=== PATIENT | female | born 1965 | race African-American/Black ===

== ENCOUNTER 2024-01-28 09:39 | Outpatient (OUT) | payer MEDICAID, SELFPAY ==
--- NOTE | 2024-01-28 09:51 | MM_ITS ---
Patient Name: YOLI ROY MR#: [id number] : 1965 Exam Date: 01/28/2024 Ordering Doctor: Non-Staff Physician RADIOLOGY REPORT PROCEDURE: MM TOMOSYNTHESIS SCREENING BI COMPARISON: None. INDICATIONS: Screening Calculator Name NCI Breast Cancer Risk Assessment Tool 5 Year Breast Cancer Risk Not Reported. Lifetime Breast Cancer Risk Not Reported. Personal Breast Cancer No Personal Ovarian Cancer No Treatments None Family Cancers None LOCATION: The [facility] BREAST COMPOSITION: The breasts are heterogeneously dense,which may obscure small masses. FINDINGS: DIAGNOSTIC CATEGORY 1--NEGATIVE. Scattered benign-appearing calcifications are present. Scattered benign-appearing lymph nodes are present. RIGHT BREAST: No significant suspicious finding. LEFT BREAST: No significant suspicious finding. RECOMMENDATIONS: ROUTINE MAMMOGRAM AND CLINICAL EVALUATION IN 12 MONTHS. PLEASE NOTE: A NORMAL MAMMOGRAM DOES NOT EXCLUDE THE POSSIBILITY OF BREAST CANCER. A CLINICALLY SUSPICIOUS PALPABLE LUMP SHOULD BE BIOPSIED. Dictated by: Kurtis Armstrong MD on 01/28/2024 at 11:44 Approved by: Kurtis Armstrong MD on 01/28/2024 at 11:59
== END 2024-01-28 09:40 | disposition home or self-care (01) ==
LOC: MAMMO 09:44
PROVIDERS: PCP Family Medicine
DX: Z12.31 Encounter for screening mammogram for malignant neoplasm of breast (principal)
CPT/HCPCS: 77063; 77067

== ENCOUNTER 2024-03-25 11:21 | Outpatient (OUT) | payer MEDICAID, SELFPAY ==
--- NOTE | 2024-03-25 11:27 | US_ITS ---
The [address] [address] Patient Name: YOLI ROY MRN: [id number] date: 1965 Sex: F Assigned Patient Location: US Current Patient Location: US Accession/Order Number: [id number] Exam Date: 03/25/2024 11:28 Report Date: 03/25/2024 13:18 At the request of: NON-STAFF PHYSICIAN Procedure: US right upper quadrant EXAM: US right upper quadrant HISTORY: Right Upper Quadrant Pain COMPARISON: None. TECHNIQUE: Grayscale, color and Doppler FINDINGS: The visualized pancreas is normal The liver measures 16.1 cm in length. Diffuse increase in hepatic echotexture suggesting hepatic steatosis. No focal mass. Hepatopedal flow in the main portal vein. The gallbladder is normal in appearance. The wall measures 1.4 mm. Negative sonographic Johnson sign. Common bile duct measures 5.2 mm, normal The right kidney is normal measuring 7.7 x 5 No ascites US/US right upper quadrant IMPRESSION: Echogenic liver suggesting hepatic steatosis. Electronically authenticated by: NÉSTOR CHACON Date: 03/25/2024 13:18
--- OUTSIDE RECORDS SUMMARY | 2024-03-25 11:29 | XMS_ITS | CCD ---
Author Organization [facility] Care Team Providers Care Call Center Analyst Name Role Phone PHYSICIAN, DEFAULT Unavailable Unavailable PHYSICIAN, DEFAULT Unavailable Unavailable NÉSTOR MACK JR Unavailable Unavailable NÉSTOR MACK JR Unavailable Unavailable NONE, XXXX Unavailable Unavailable CASSIUS BHANDARI~[id number] UNKNOWN Unavailable Unavailable DR CASSIUS BHANDARI Primary Care Unavailable SUZIE DIAZ Admitting Unavailable SUZIE DIAZ Attending Unavailable OSWALDO, DR NÉSTOR Cruz Consulting Unavailable JOHN GALLO Consulting Unavailable DR CASSIUS BHANDARI Primary Care Unavailable SUZIE DIAZ Admitting Unavailable SUZIE DIAZ Attending Unavailable JOHN THOMAS Consulting Unavailable Jhonny Bhat Attending Unavailab le NO FAMILY, PHYSICIAN Primary Care Unavailable Jhonny Bhat Admitting Unavailab le Jhonny Bhat Admitting Unavailab le Jhonny Bhat Attending Unavailab le NO FAMILY, PHYSICIAN Primary Care Unavailable NO PCP, NO PCP Primary Care Unavailable ROSARIO DAVIS Attending Unavailab le NO PCP, NO PCP Primary Care Unavailable Problems Active Problems Problem Classification Problem Date Documented Date Episodic/Chronic Anxiety disorders (1 source) Anxiety disorder, unspecified; Translations: [ANXIETY DISORDER UNSPECIFIED] Onset: 03-05-2022 Chronic Bacterial infection; unspecified site (1 source) Other specified bacterial agents as the cause of diseases classified elsewhere; Translations: [Other specified bacterial agents as the cause of diseases classified elsewhere] Onset: 09-18-2023 Episodic Inflammatory diseases of female pelvic organs (2 sources) Acute vaginitis; Translations: [Vaginitis] Onset: 09-18-2023 Episodic Mood disorders (1 source) Major depressive disorder, single episode, unspecified; Translations: [JAQUELINE DEPRESS D/O SINGLE EPIS UNS] Onset: 03-05-2022 Chronic Other connective tissue disease (4 sources) Pain in right leg; Translations: [PAIN IN RIGHT LEG] Onset: 03-01-2022 Episodic Other infections; including parasitic (2 sources) Scabies; Translations: [SCABIES] Onset: 07-24-2021 Episodic Schizophrenia and other psychotic disorders (1 source) Unspecified psychosis not due to a substance or known physiological condition; Translations: [Unspecified psychosis not due to a substance or known physiological condition] Onset: 10-18-2022 Chronic Unclassified (1 source) Rash Onset: 09-12-2023 Unclassified (1 source) Medical Clearance Onset: 09-12-2023 Past or Other Problems Problem Classification Problem Date Documented Da te Episodic/Chronic Other aftercare (1 source) Other long term care pharmacist (current) drug therapy; Translations: [OTH RESIDENTIAL CURRENT DRUG THERAPY] Onset: 07-24-2021 Episodic Other skin disorders (3 sources) Rash and other nonspecific skin eruption; Translations: [RASH OTH NONSPECIFIC SKIN ERUPTION] Onset: 07-23-2021 Episodic Results Test Name Value Interpretation Reference Range Facil ity URN MACROSCOPIC NURon 2023 BILIRUBIN PREET Negative Normal NEG [facility] Comment on above: Performed By: #### N UM #### [facility] ([id number]) [address] [place] [address] BLOOD/HGB PREET Negative Normal NEG [facility] Comment on above: Performed By: #### N UM #### [facility] ([id number]) [address] [place] [address] [place] [address] GLUCOSE PREET Negative Normal NEG [facility] Comment on above: Performed By: #### N UM #### [facility] ([id number]) [address] [place] [address] KETONES PREET Negative Normal NEG [facility] Comment on above: Performed By: #### N UM #### [facility] ([id number]) [address] [place] [address] [place] [address] LEUKOCYTE ESTERASE PREET Trace Abnormal NEG [facility] Comment on above: Performed By: #### N UM #### [facility] ([id number]) [address] [place] [address] NITRITE PREET Negative Normal NEG [facility] Comment on above: Performed By: #### N UM #### [facility] ([id number]) [address] [place] [address] PH PREET 5.5 Normal 5.0-8.5 [facility] Comment on above: Performed By: #### N UM #### [facility] ([id number]) [address] [place] [address] PROTEIN PREET Negative Normal NEG [facility] Comment on above: Performed By: #### N UM #### [facility] ([id number]) [address] [place] [address] SPECIFIC GRAVITY PREET >=1.030 Normal 1.003-1.035 [facility] Comment on above: Performed By: #### N UM #### [facility] ([id number]) [address] [place] [address] UROBILINOGEN PREET 0.2 eu/dL Normal <1.1 [facility] Comment on above: Performed By: #### N UM #### [facility] ([id number]) [address] [place] [address] XR hip RT min 2V(w/wo pelvis )*on 10-20-2022 XR hip RT min 2V(w/wo pelvis)* [facility] Main [address] [address] XRay Report Signed Patient: Ne Roy MR#: [id number] : 1965 Acct:[id number] Age/Sex: 57 / F ADM Date: 10/18/22 Loc: Room: [address] [place] [address] Type: ADM IN Attending Dr: Tereza Bhat MD Copies to: Jhonny Bhat MD Ordering Provider: Jhonny Bhat MD Date of Service: 10/20/22 XR/XR hip RT min 2V(w/wo pelvis)*: R hip pain, NKI XR hip RT min 2V(w/wo pelvis)* 10/20/2022 7:46 AM SIGNS AND SYMPTOMS: R hip pain, NKI PROTOCOL: Frontal and frog-leg views of the right hip COMPARISON: None FINDINGS: Mild subcortical cystic change is noted in the acetabular roof on the right with mild narrowing of the right hip joint space. There is no fracture or dislocation. The visualized right hemipelvis is grossly intact. Calcified uterine fibroids are partly visualized. XR/XR hip RT min 2V(w/wo pelvis)* IMPRESSION: No fracture or dislocation. Degenerative changes are noted in the right hip, as above. Impression dictated by: Selwyn Wilkinson M.D.10/20/2022 10:47 AM Dictation Location: [place] [address] Transcribed By: [facility] 10/20/22 104 Dictated By: Selwyn Wilkinson II, MD 10/20/22 104 Signed By: 10/20/22 104 Normal ECG 12 lead ECGon 10-18-2022 ECG 12 lead ECG [facility] [place] [address] Electrocardiograph Report Signed Patient: Ne Roy MR#: [id number] : 1965 Acct:[id number] Age/Sex: 57 / F ADM Date: 10/18/22 Loc: Room: [address] [place] [address] Type: ADM IN Attending Dr: Tereza Bhat MD Ordering Provider: Jhonny Bhat MD Date of Service: 10/18/2211/03/499 ECG/ECG 12 lead ECG: antipsychotic therapy Copies to: Test Reason : Blood Pressure : / mmHG Vent. Rate : 086 BPM Atrial Rate : 086 BPM P-R Int : 206 ms QRS Dur : 080 ms QT Int : 382 ms P-R-T Axes : 031 007 033 degrees QTc Int : 457 ms Normal sinus rhythm Low voltage QRS Septal infarct , age undetermined Abnormal ECG No previous ECGs available Confirmed by JEANA ALVA DO ([id number]) on 10/18/2022 12:52:52 PM Referred By: Electronically Signed By:JEANA ALVA DO Transcribed By: MUS Signed By Jeana Alva DO 10/18 1252 Normal Lipid Panelon 10-18-2022 Cholesterol [Mass/Vol] 126 mg/dL Low 140-200 Comment on above: Result Comment: Chol less than 200 mg/dl low risk Chol 201-239 mg/dl borderline risk Chol 240 mg/dl and greater high risk Performed By: #### L IPID, TSH3 wRFLX, [id number] #### [facility] [address] [place] [address] Cholesterol in HDL [Mass/Vol] 44 mg/dL Normal 23-92 Comment on above: Result Comment: HDL CHOL ATP-III CLASSIFICATION Cardiovascular Risk HDL > or equal to 60 mg/dL LOW HDL < 40 mg/dL HIGH Performed By: #### L IPID, TSH3 wRFLX, [id number] #### [facility] [address] [id number] [place] Cholesterol.total/C holesterol in HDL [Mass ratio] 2.9 {ratio} Normal <5.0 Comment on above: Performed By: #### L IPID, TSH3 wRFLX, [id number] #### [facility] [address] [id number] [place] LDL Cholesterol,Calcula nany 74 mg/dL Normal 0-100 Comment on above: Result Comment: LDL ATP III CLASSIFICATION LDL less than 100 mg/dL Optimal LDL 100-129 mg/dL Near or above optimal LDL 130-159 mg/dL Borderline high LDL 160-189 mg/dL High LDL greater than 189 mg/dL Very high Performed By: #### L IPID, TSH3 wRFLX, [id number] #### [facility] [address] [id number] [place] Triglyceride w/Reflex 42 mg/dL Normal 0-149 Comment on above: Result Comment: TRIG ATP III CLASSIFICATION TRIG less than 150 mg/dL Normal TRIG 150-199 mg/dL Borderline high TRIG 200-500 mg/dL High TRIG greater than 500 mg/dL Very high Standard traceable to the Center for Disease Conrtrol and Prevention (CDC) test method. Performed By: #### L IPID, TSH3 wRFLX, [id number] #### [facility] [address] [place] [address] VLDL CHOLESTEROL 8 mg/dL Normal [facility] Comment on above: Performed By: #### L IPID, TSH3 wRFLX, [id number] #### [address] Thyroid Stim Hormone w/Rflxo n 10-18-2022 Thyroid Stim Hormone w/Rflx 0.68 u[iU]/mL Normal 0.45-5.33 Comment on above: Performed By: #### L IPID, TSH3 wRFLX, [id number] #### [address] Vitamin D 25 Hydroxy Totalon 10-18-2022 Vitamin D 25 Hydroxy Total 27.6 ng/mL Low 30-100 Comment on above: Result Comment: TITO MIN D STATUS 25(OH)VITAMIN D RANGE (ng/mL) Deficient <20 Insufficient 20 to <30 Sufficient 30 to 100 Reference: Gege MF,Campos NC, Mary Ellen CANA[place], et al. Evaluation,treatment, and prevention of vitamin D deficiency; an Endocrine Society clinical practice guideline. JCEM. 2010; 96(7):1911-30. PERFORMED BY: [place] [address] PATHOLOGIST LAUNCH ENGINEER LETICIA ABARCA M.D. Performed By: #### L IPID, TSH3 wRFLX, [id number] #### [address] BNPon 03-01-2022 Natriuretic peptide B (Bld) [Mass/Vol] 11.0 pg/mL Normal <=900.0 [facility] Comment on above: Performed By: #### B MP, BNP #### [facility] [address] [place] [address] Dr. Asa Jara CBC AUTO DIFFon 03-01-2022 BASO # 0.1 103/ul Normal 0.0-0.1 [facility] Comment on above: Performed By: #### C BC #### [facility] [address] [place] [address] Dr. Asa Jara Basophils/100 WBC (Bld) 0.5 % Normal 0.2-2.0 [facility] Comment on above: Performed By: #### C BC #### [facility] [address] [place] [address] Dr. Asa Jara EO # 0.3 103/ul Normal 0.0-0.7 [facility] Comment on above: Performed By: #### C BC #### [facility] [address] [place] [address] Dr. Asa Jara Eosinophils/100 WBC (Bld) 2.7 % Normal 0.9-7.0 [facility] Comment on above: Performed By: #### C BC #### [facility] [address] [place] [address] Dr. Asa Jara Erythrocyte distribution width (RBC) [Ratio] 12.2 % Normal 11.0-15.0 [facility] Comment on above: Performed By: #### C BC #### [facility] [address] [place] [address] Dr. Asa Jara Hematocrit (Bld) [Volume fraction] 44.2 % Normal 36.0-48.0 [facility] Comment on above: Performed By: #### C BC #### [facility] [address] [place] [address] Dr. Asa Jara Hemoglobin (Bld) [Mass/Vol] 15.4 g/dL Normal 12.0-16.0 [facility] Comment on above: Performed By: #### C BC #### [facility] [address] [place] [address] Dr. Asa Jara IG # 0.01 10e3/ul Normal 0.00-0.03 [facility] Comment on above: Performed By: #### C BC #### [facility] [address] [place] [address] Dr. Asa Jara IG % 0.1 % Normal 0.0-0.5 [facility] Comment on above: Performed By: #### C BC #### [facility] [address] [place] [address] Dr. Asa Jara LYMPH # 3.0 103/ul Normal 1.2-3.8 [facility] Comment on above: Performed By: #### C BC #### [facility] [address] [place] [address] Dr. Asa Jara Lymphocytes/100 WBC (Bld) 30.9 % Normal 20.5-60.0 [facility] Comment on above: Performed By: #### C BC #### [facility] [address] [place] [address] Dr. Asa Jara MANUAL DIFF REQ NO Normal [facility] Comment on above: Performed By: #### C BC #### [facility] [address] [place] [address] Dr. Asa Jara MCH (RBC) [Entitic mass] 31.2 pg Normal 26.7-34.0 [facility] Comment on above: Performed By: #### C BC #### [facility] [address] [place] [address] Dr. Asa Jara MCHC (RBC) [Mass/Vol] 34.8 g/dL Normal 29.9-35.2 [facility] Comment on above: Performed By: #### C BC #### [facility] [address] [place] [address] Dr. Asa Jara MCV (RBC) [Entitic vol] 89.5 fL Normal 81.0-99.0 [facility] Comment on above: Performed By: #### C BC #### [facility] [address] [place] [address] Dr. Asa Jara MONO # 0.5 103/ul Normal 0.3-0.8 [facility] Comment on above: Performed By: #### C BC #### [facility] [address] [place] [address] [address] Asa Jara Monocytes/100 WBC (Bld) 5.4 % Normal 1.7-12.0 [facility] Comment on above: Performed By: #### C BC #### [facility] [address] [place] [address] [address] Asa Jara NEUT # 5.8 103/ul Normal 1.4-6.5 [facility] Comment on above: Performed By: #### C BC #### [facility] [address] [place] [address] Dr. Asa Jara Neutrophils/100 WBC (Bld) 60.4 % Normal 43.0-75.0 [facility] Comment on above: Performed By: #### C BC #### [facility] [address] [place] [address] Dr. Asa Jara Platelet mean volume (Bld) [Entitic vol] 9.7 fL Normal 9.5-13.5 [facility] Comment on above: Performed By: #### C BC #### [facility] [address] [place] [address] Dr. Asa Jara PLT 215 103/ul Normal 150-450 [facility] Comment on above: Performed By: #### C BC #### [facility] [address] [place] [address] Dr. Asa Jara RBC 4.94 106/ul Normal 4.20-5.40 [facility] Comment on above: Performed By: #### C BC #### [facility] [address] [place] [address] Dr. Asa Jara WBC 9.6 103/ul Normal 4.0-11.0 [facility] Comment on above: Performed By: #### C BC #### [facility] [address] [place] [address] Dr. Asa Jara PROF CHEM 8 (BAS METB)on Anion gap [Moles/Vol] 11.3 mmol/L Normal [facility] Comment on above: Performed By: #### B MP, BNP #### [facility] [address] [place] [address] [address] Asa Jara Calcium [Mass/Vol] 9.4 mg/dL Normal 8.5-10.1 [facility] Comment on above: Performed By: #### B MP, BNP #### [facility] [address] [place] [address] [address] Asa Jara Chloride [Moles/Vol] 105 mmol/L Normal 98-107 [facility] Comment on above: Performed By: #### B MP, BNP #### [facility] [address] [place] [address] [address] Asa Jara CO2 [Moles/Vol] 24.6 mmol/L Normal 21.0-32.0 [facility] Comment on above: Performed By: #### B MP, BNP #### [facility] [address] [place] [address] [address] Asa Jara Creatinine [Mass/Vol] 0.76 mg/dL Normal 0.55-1.02 [facility] Comment on above: Performed By: #### B MP, BNP #### [facility] [address] [place] [address] [address] Asa Jara EGFR-AF CITIZEN OF [place] >60 Normal >=60 [facility] Comment on above: Performed By: #### B MP, BNP #### [facility] [address] [place] [address] [address] Asa Jara EGFR-NON AF CITIZEN OF THE [place] >60 Normal >=60 [facility] Comment on above: Performed By: #### B MP, BNP #### [facility] [address] [place] [address] [address] Asa Jara Glucose [Mass/Vol] 98 mg/dL Normal 74-106 [facility] Comment on above: Performed By: #### B MP, BNP #### [facility] [address] [place] [address] [address] Asa Jara Potassium [Moles/Vol] 4.4 mmol/L Normal 3.5-5.1 [facility] Comment on above: Performed By: #### B MP, BNP #### [facility] [address] [place], [place] [address] Dr. Asa Jara Sodium [Moles/Vol] 137 mmol/L Normal 136-145 [facility] Comment on above: Performed By: #### B MP, BNP #### [facility] [address] [place], [place] [address] Dr. Asa Jara Urea nitrogen [Mass/Vol] 15.0 mg/dL Normal 7.0-18.0 [facility] Comment on above: Performed By: #### B MP, BNP #### [facility] [address] [place], [place] [address] Dr. Asa Jara Urea nitrogen/Creatinine [Mass ratio] 19.7 mg/mg Normal [facility] Comment on above: Performed By: #### B MP, BNP #### [facility] [address] [address] [address] Asa Jara US LUCITA DOP LEG RTon 03-01-20 US LUCITA DOP LEG RT EXAMINATION: US LUCITA DOP LEG RT HISTORY: Deep venous thrombosis COMPARISON: No relevant comparison available. TECHNIQUE: Grayscale, color and Doppler ultrasound FINDINGS: Region: Right leg Thrombus: None Flow: Normal Compressibility: Normal Augmentation: Normal IMPRESSION: No deep or superficial vein thrombus in the right leg *Exam performed in accordance with [facility] practice guidelines- Peripheral venous ultrasound, July 08, 2009. Electronically authenticated by: NÉSTOR CHACON Date: 2022-03-01 15:31 Normal [facility] Coding Summary.on 12-22-2017 Coding Summary. CODING DATE: 12/22/[address] [facility] STATUS: Home (Routine DC) PAYOR: Medicaid EAPG DESCRIPTION 0288 DIAGNOSTIC ULTRASOUND EXCEPT OBSTETRICAL AND VASCULAR OF LOWER EXTREMITIES ADMIT DX: REASON FOR VISIT DX: B19.20 Unspecified viral hepatitis C without hepatic coma FINAL DX: PRINCIPAL: K76.0 Fatty (change of) liver, not elsewhere classified SECONDARY: B19.20 Unspecified viral hepatitis C without hepatic coma PYMT PROC EAPG STAT DESCRIPTION DOCTOR NAME DATE NOTE: The code number assigned matches the documented diagnosis and / or procedure in the patient's chart. However, the narrative phrase printed from the coding software may appear abbreviated, or result in slightly different terminology. Coded By: Angela Larry Date Saved: 12/22/2017 09:50 am Normal [facility] Encounters Encounter Date Encounter Type Care Provider Facility Start: 09-18-2023 End: 09-18-2023 Emergency department patient visit NO PCP NO PCP [facility] Start: 09-12-2023 End: 09-12-2023 Emergency department patient visit NO PCP NO PCP [facility] Start: 10-24-2022 ambulatory Jhonny Bhat F acility: Start: 10-18-2022 End: 10-21-2022 Evaluation and management of inpatient Jhonny Bhat Facility: Start: 03-01-2022 End: 03-01-[address] CASSIUS BHANDARI Facility: Start: 07-23-2021 End: 07-23-[address] CASSIUS BHANDARI Facility:[facility] Start: 12-17-2017 End: 12-18-2017 Patient encounter NÉSTOR MACK JR [facility] Start: 01-28-2017 End: 01-29-2017 Ambulatory DEFAULT PHYSICIAN Facility:[facility] Payers Date Payer Category Payer Self-pay 2022 Medicaid [id number] 2017 Unknown [id number] 1965 Unknown [id number] .16.84 [id number] 1965 Unknown [id number] 1965 Unknown [id number] .16.8 [id number] 1965 Unknown [id number] .16.8 [id number] 1957 Unknown [id number] Unknown Unknown [id number] 2.16.8 [id number] Unknown [id number] .16.8 [id number] Summary Purpose Family History No Family History Records FoundNo Family History Records FoundNo Family History Records FoundNo Family History Records FoundNo Family History Records Found Advance Directives No Advanced Directives Records FoundNo Advanced Directives Records FoundNo Advanced Directives Records FoundNo Advanced Directives Records FoundNo Advanced Directives Records Found Additional Source Comments INFORMATION SOURCE (unrecogn ized section and content) DATE CREATED AUTHOR 10/07/2017 [facility] DATE CREATED AUTHOR AUTHOR'S ORGANIZ ATION 01/04/2018 [facility] DATE CREATED AUTHOR AUTHOR'S ORGANIZ ATION 03/06/2022 [facility] DATE CREATED AUTHOR AUTHOR'S ORGANIZ ATION 04/13/2023 [facility] DATE CREATED AUTHOR AUTHOR'S ORGANIZ ATION 09/20/2023 [facility] FOR RECORDS PERTAINING TO PATIENTS WHO ARE OR HAVE BEEN ENROLLED IN A CHEMICAL DEPENDENCY/SUBSTANCEABUSE PROGRAM, SOME INFORMATION MAY BE OMITTED. This clinical summary was aggregated from multiple sources. Caution should be exercised in using it in the provision of clinical care. This summary normalizes information from multiple sources, and as a consequence, information in this document may materially change the coding, format and clinical context of patient data. In addition, data may be omitted in some cases. CLINICAL DECISIONS SHOULD BE BASED ON THE PRIMARY CLINICAL RECORDS. [employer] provides no warranty or guarantee of the accuracy or completeness of information in this document.
== END 2024-03-25 11:22 | disposition home or self-care (01) ==
LOC: US 11:21
PROVIDERS: PCP Family Medicine
DX: R10.11 Right upper quadrant pain (principal)
CPT/HCPCS: 76705

== ENCOUNTER 2024-09-20 11:38 | Emergency (ER) | payer MEDICAID, SELFPAY ==
--- OUTSIDE RECORDS SUMMARY | 2024-07-09 07:00 | XMS_ITS ---
Demographics Address [address] [facility] [address] [place] [address] Mobile Email Address m Preferred Language en Marital Status Unknown Taoism Affiliation Unknown Race Black or Julia rican Ethnic Group Not or Lati no Author Organization [facility] vices Address [address] [place] [id number] Care Team Providers Care Cloth Mercerizing Supervisor Name Role Phone Debra Mendy Primary Care Provider Becky Griffin [phone] REASON FOR VISIT f/u Social History Sex Assigned At : Social History Observation Description Sex Assigned At Female Encounters Encounter Location Date Provider Diagnosis Main [address] [place], [place] [id number] 07/09/2024 Mendy Richardson Plan Of Treatment Next Appt Details Provider Name:Mendy Richardson , 10/12/2024 09:45:00 AM, [address] [place] [address] [place], [place], [phone], Progress Notes * Ne ROYDOB: [birth year] (58 yo F)Acc No.[id number]:07/09/2024 Medical Note Patient: Ne KILGORE Provider: Mehga Richardson :1965 A ge:58 Y S ex:Female Date:07/09/2024 Address:[address] [facility] [address], [address], [id number] Subjective: * Chief Complaints: * 1 . F/u. * Medical History: Objective: * Vitals: Assessment: Plan: * Treatment: * Billing Information: * Visit Code: * Procedure Codes: * Electronic signature of BHARGAV Aragon sa on 09/20/2024 at 11:53 AM EDT Sign off status: Pending * Provider: Megha Richardson Date: 0 07/09/2024 Generated for Fany dawn/Miguel/Padmini on: 0 09/20/2024 11:53 AM EDT
--- OUTSIDE RECORDS SUMMARY | 2024-09-20 11:53 | XMS_ITS | Clinical Summary ---
Author Organization [facility] Healthcare Address [address] [place] [address] Care Team Providers Care Region Manager Name Role Phone Unavailable Primary Care Provider Unavailabl e Social History Tobacco Use Types Packs/Day Years Used Date Smoking Tobacco: Never Assessed Comments Unknown Sex and Gender Information Value Date Recorded Sex Assigned at Not on file Legal Sex Female 8:22 PM EDT Gender Identity Not on file Sexual Orientation Not on file Last Filed Vital Signs Vital Sign Reading Time Taken Comments Blood Pressure - - Pulse - - Temperature - - Respiratory Rate - - Oxygen Saturation - - Inhaled Oxygen Concentration - - Weight 86.2 kg (190 lb) 02/12/2018 12:00 PM EDT Height 160 cm (5' 3 ) 02/12/2018 12:00 PM EDT Body Mass Index 33.66 02/12/2018 12:00 PM EDT Plan of Treatment Health Maintenance Due Date Last Done Comments CT Colonography 1967 Colonoscopy 1967 FIT 1967 FOBT 1965 Sigmoidoscopy 1967 Pap Smear 10/15/1988 Cervical Cancer Screening 10/15/1997 HPV/Cotest 10/15/1997 Colorectal Cancer Screening 06/30/2021 FIT-DNA 06/30/2021 06/30/2018 Influenza Vaccine (Season Ended) 2024 Mammogram 01/27/2025 01/28/2024, 020 07/2020, 02/26/2019, Additional history exists Procedures Procedure Name Priority Date/Time Associated Diagnosis Comments MM TOMOSYNTHESIS SCREENING BI 01/28/2024 11:59 AM EDT from Last 3 Months or Most Recently Relevant to Health Maintenance Results * MM TOMOSYNTHESIS SCREENING BI (01/28/2024 11:59 AM EDT) Anatomical Region Laterality Modality Other 01/28/2024 11:5 9 AM EDT Narrative 01/28/2024 12:00 PM EDT The [address] [address] Mammography Report Signed Patient: NE ROY MR#: [id number] : 1965 Acct:[id number] Age/Sex: 58 / F ADM Date: 01/28/24 Loc: MAMMO Attending Dr: AngeStaff Physician Olivo Ordering Physician: Mercy Posada M.D. Results: Date of Service: 01/28/24 Follow Up: Procedure(s): MM tomosynthesis screening BI Accession Number(s): [id number] cc: Sven Martin M.D.; Mercy Posada M.D. Patient Name: NE ROY MR#: [id number] : 1965 Exam Date: 01/28/2024 Ordering Doctor: Non-Staff Physician RADIOLOGY REPORT PROCEDURE: MM TOMOSYNTHESIS SCREENING BI COMPARISON: None. INDICATIONS: Screening Calculator Name NCI Breast Cancer Risk Assessment Tool 5 Year Breast Cancer Risk Not Reported. Lifetime Breast Cancer Risk Not Reported. Personal Breast Cancer No Personal Ovarian Cancer No Treatments None Family Cancers None LOCATION: The [facility] BREAST COMPOSITION: The breasts are heterogeneously dense,which may obscure small masses. FINDINGS: DIAGNOSTIC CATEGORY 1--NEGATIVE. Scattered benign-appearing calcifications are present. Scattered benign-appearing lymph nodes are present. RIGHT BREAST: No significant suspicious finding. LEFT BREAST: No significant suspicious finding. RECOMMENDATIONS: ROUTINE MAMMOGRAM AND CLINICAL EVALUATION IN 12 MONTHS. PLEASE NOTE: A NORMAL MAMMOGRAM DOES NOT EXCLUDE THE POSSIBILITY OF BREAST CANCER. A CLINICALLY SUSPICIOUS PALPABLE LUMP SHOULD BE BIOPSIED. Dictated by: Kurtis Armstrong MD on 01/28/2024 at 11:44 Approved by: Kurtis Armstrong MD on 01/28/2024 at 11:59 Dictated By: Kurtis Armstrong M.D. Signed By: 01/28/24 1200 DD/ 1159 TD/TT: Leather Patcher: Procedure Note Radiology, RadiologistMD - 01/28/2024 [place] [address] Mammography Report Signed Patient: NE ROY AMR#: [id number] : 1965Acct:[id number] Age/Sex: 58 / FADM Date: 01/28/24 Loc: MAMMO Attending Dr: AngeStaff Physician Olivo Ordering Physician: Mercy Posada M.D.Results: Date of Service: 01/28/24Follow Up: Procedure(s): MM tomosynthesis screening BI Accession Number(s): [id number] cc: Sven Martin M.D.; Mercy Posada M.D. Patient Name: NE ROY MR#: [id number] : 1965 Exam Date: 01/28/2024 Ordering Doctor: Non-Staff Physician RADIOLOGY REPORT PROCEDURE: MM TOMOSYNTHESIS SCREENING BI COMPARISON: None. INDICATIONS: Screening Calculator Name NCI Breast Cancer Risk Assessment Tool 5 Year Breast Cancer Risk Not Reported. Lifetime Breast Cancer Risk Not Reported. Personal Breast Cancer No Personal Ovarian Cancer No Treatments None Family Cancers None LOCATION: [facility] BREAST COMPOSITION: The breasts are heterogeneously dense,which may obscure small masses. FINDINGS: DIAGNOSTIC CATEGORY 1--NEGATIVE. Scattered benign-appearing calcifications are present. Scattered benign-appearing lymph nodes are present. RIGHT BREAST: No significant suspicious finding. LEFT BREAST: No significant suspicious finding. RECOMMENDATIONS: ROUTINE MAMMOGRAM AND CLINICAL EVALUATION IN 12 MONTHS. PLEASE NOTE: A NORMAL MAMMOGRAM DOES NOT EXCLUDE THE POSSIBILITY OFBREAST CANCER. A CLINICALLY SUSPICIOUS PALPABLE LUMP SHOULD BE BIOPSIED. Dictated by: Kurtis Armstrong MD on 01/28/2024 at 11:44 Approved by: Kurtis Armstrong MD on 01/28/2024 at 11:59 Dictated By: Kurtis Armstrong M.D. Signed By:01/28/24 1200 DD/ 1159 TD/TT: Leather Patcher: us Generic External Data Provider [facility] Final Result from Last 3 Months or Most Recently Relevant to Health Maintenance
--- OUTSIDE RECORDS SUMMARY | 2024-09-20 11:54 | XMS_ITS | Encounter Summary ---
Demographics Address [address] [facility] [address] [place] [address] Home Phone Mobile Phone Email Address Preferred Language ENG Marital Status Single Muslim Affiliation Unknown Race Black or Julia rican Ethnic Group Not or Lati no Author Organization [facility] Address [facility] [place] [address] Care Team Providers Care Bush And Vine Fruit Crop Farmer Name Role Phone Unavailable Primary Care Provider Unavailabl e Source Comments In the event this information is protected by the Federal Confidentiality of Alcohol and Drug AbusePatient Records regulations: The Federal rules restrict any use of the information to criminally investigate or prosecute any alcohol or drug abuse patient.[facility] Reason for Visit * Reason Comments Appointment Encounter Details Date Type Department Care Team ([facility] Contact Info) Description 05/06/2024 Telephone [facility] [address] [place] [address] Kurtis Leyva Jr., DO [address] [facility] [address] [address] Appointment Social History Tobacco Use Types Packs/Day Years Used Date Smoking Tobacco: Never Assessed Area Deprivation Index Answer Date Eh rded National Score (1-100), lowe r number is lower risk 81 09/16/2023 State Score (1-10), lower number is lower risk 7 09/16/2023 Data from: https://www.neighborhoodatlas.medicine.[facility].edu/ . Last address used for calculation [address] [facility] 09/16/2023 Comments Unknown Sex and Gender Information Value Date Recorded Sex Assigned at Not on file Legal Sex Female 11:17 AM EDT Gender Identity Not on file Sexual Orientation Not on file documented as of this encounter Miscellaneous Notes * Telephone Encounter - Eliana Winchester - 05/17/2024 11:05 AM EST Spoke with the patient, explained Dr. Leyva no longer sees patients for Hepatology, she stated she has found another provider for this issue. * Telephone Encounter - Janis Frausto RN - 05/12/2024 12:00 PM EST Hi Janis, This message came through from the scheduling center. The patient says they were with Dr. Leyva prior to him coming to [place]. However, when I put the patient in for the conditions stated, the decision tree takes me to Hepatology, not giving me an option to schedule with Dr. Leyva unless I force him on to the list of providers. My question is has he seen her in the past for her Hep C and fatty liver-non alcoholic condition inthe past? If so, should I schedule her with him? Aisha I would advise pt that he does not see pts for hepatology any longer since coming to [facility]. But, she can be added to Dr. Rivas's schedule (who I am also - for). He see pt's at [facility] on Wednesdays. Thank you. Janis Frausto RN * Telephone Encounter - Janice Franco Bambi - 05/06/2024 4:08 PM EST Ne is calling Kurtis Leyva Jr., DO today to request Appointment. Patient states she was a previous patient of Dr. Leyva prior to provider coming to . Patient states she was seeing Dr. Leyva for Hepatitis C, but most recently seen for Acute fatty liver- non alcoholic Patient would like to continue care with Dr. Leyva Decision tree does not allow scheduling with Dr. Leyva for either diagnosis. Please advise if the provider would be able to see this patient? Patient has been identified by name and birthdate. Duration of symptoms: N/A Person calling: self Call patient at: at home and on cell [phone] (home) [phone] (cell) Was an appointment scheduled: No Closing statement: Results or non-symptom based questions: Thank you for calling [facility], your call will be returned within the next business day. Janice Franco documented in this encounter Plan of Treatment Not on file documented as of this encounter Visit Diagnoses Not on filedocumented in this encounter
--- OUTSIDE RECORDS SUMMARY | 2024-09-20 11:54 | XMS_ITS | Encounter Summary ---
Author Organization [facility] Address [address] [place] [address] Care Team Providers Care Shipping And Receiving Weigher Name Role Phone Unavailable Primary Care Provider Unavailabl e Encounter Details Date Type Department Care Team (Late st Contact Info) Description 01/28/2024 Clinisync Result Encounter [facility] External Department Unsolicited Provider, Generic External Data Social History Tobacco Use Types Packs/Day Years Used Date Smoking Tobacco: Never Assessed Comments Unknown Sex and Gender Information Value Date Recorded Sex Assigned at Not on file Legal Sex Female 8:22 PM EDT Gender Identity Not on file Sexual Orientation Not on file documented as of this encounter Plan of Treatment Not on file documented as of this encounter Procedures Procedure Name Priority Date/Time Associated Diagnosis Comments MM TOMOSYNTHESIS SCREENING BI 01/28/2024 11:59 AM EDT documented in this encounter Results * MM TOMOSYNTHESIS SCREENING BI (01/28/2024 11:59 AM EDT) Anatomical Region Laterality Modality Other 01/28/2024 11:5 9 AM EDT Narrative 01/28/2024 12:00 PM EDT The [address] [address] Mammography Report Signed Patient: NE ROY MR#: [id number] : 1965 Acct:[id number] Age/Sex: 58 / F ADM Date: 01/28/24 Loc: MAMMO Attending Dr: Non-Staff Physician Pallavi Ordering Physician: Mercy Posada M.D. Results: Date of Service: 01/28/24 Follow Up: Procedure(s): MM tomosynthesis screening BI Accession Number(s): [id number] cc: Sven Martin M.D.; PhysicianeMrcy M.D. Patient Name: NE ROY MR#: [id number] : 1965 Exam Date: 01/28/2024 Ordering Doctor: Nadine-Staff Physician RADIOLOGY REPORT PROCEDURE: MM TOMOSYNTHESIS SCREENING BI COMPARISON: None. INDICATIONS: Screening Calculator Name NCI Breast Cancer Risk Assessment Tool 5 Year Breast Cancer Risk Not Reported. Lifetime Breast Cancer Risk Not Reported. Personal Breast Cancer No Personal Ovarian Cancer No Treatments None Family Cancers None LOCATION: The [facility] BREAST COMPOSITION: The breasts are [...] Signed By: 01/28/24 1200 DD/ 1159 TD/TT: Medical Social Worker: Procedure Note Radiology, Radiologist, - 01/28/2024 [place] [address] Mammography Report Signed Patient: NE ROY AMR#: [id number] : 1965Acct:[id number] Age/Sex: 58 / FADM Date: 01/28/24 Loc: MAMMO Attending Dr: AngeStaff Physician Olivo Ordering Physician: Mercy Posada M.D.Results: Date of Service: 01/28/24Follow Up: Procedure(s): MM tomosynthesis screening BI Accession Number(s): [id number] cc: Sven Martin M.D.; PhysicianMercy M.D. Patient Name: NE ROY MR#: [id number] : 1965 Exam Date: 01/28/2024 Ordering Doctor: Non-Staff Physician RADIOLOGY REPORT PROCEDURE: MM TOMOSYNTHESIS SCREENING BI COMPARISON: None. INDICATIONS: Screening Calculator Name NCI Breast Cancer Risk Assessment Tool 5 Year Breast Cancer Risk Not Reported. Lifetime Breast Cancer Risk Not Reported. Personal Breast Cancer No Personal Ovarian Cancer No Treatments None Family Cancers None LOCATION: [facility] BREAST COMPOSITION: The breasts are [...] M.D. Signed By:01/28/24 1200 DD/ 1159 TD/TT: Medical Social Worker: Generic External Data Provider [facility] Final Result documented in this encounter Visit Diagnoses Not on filedocumented in this encounter
--- OUTSIDE RECORDS SUMMARY | 2024-09-20 11:54 | XMS_ITS | Encounter Summary ---
Author Organization [facility] Address [address] [place] [address] Care Team Providers Care Staff Interpreter Name Role Phone Unavailable Primary Care Provider Unavailabl e Encounter Details Date Type Department Care Team (Late st Contact Info) Description 03/25/2024 Clinisync Result Encounter [facility] External Department Unsolicited [...] Procedure Name Priority Date/Time Associated Diagnosis Comments US RIGHT UPPER QUADRANT 03/25/2024 1:18 PM EST documented in this encounter Results * US RIGHT UPPER QUADRANT (03/25/2024 1:18 PM EST) Anatomical Region Laterality Modality Other 03/25/2024 1:18 PM EST Narrative 03/25/2024 1:21 PM EST The [place] [id number] Ultrasound Report Signed Patient: NE ROY MR#: [id number] : 1965 Acct:[id number] Age/Sex: 58 / F ADM Date: 03/25/24 Loc: US Attending Dr: AngeStaff Physician Olivo Ordering Physician: Mercy Posada M.D. Date of Service: 03/25/24 Procedure(s): US right upper quadrant Accession Number(s): [id number] cc: Sven Martin M.D.; PhysicianMercy M.D. [address] [address] Patient Name: NE ROY MRN: [facility]:[id number] date: 1965 Sex: F Assigned Patient Location: US Current Patient Location: US Accession/Order Number: [id number] Exam Date: 03/25/2024 11:28 Report Date: 03/25/2024 13:18 At the request of: NON-STAFF PHYSICIAN Procedure: US right upper quadrant EXAM: US right upper quadrant HISTORY: Right Upper Quadrant Pain COMPARISON: None. TECHNIQUE: Grayscale, color and Doppler FINDINGS: The visualized pancreas is normal The liver measures 16.1 cm in length. Diffuse increase in hepatic echotexture suggesting hepatic steatosis. No focal mass. Hepatopedal flow in the main portal vein. The gallbladder is normal in appearance. The wall measures 1.4 mm. Negative sonographic Johnson sign. Common bile duct measures 5.2 mm, normal The right kidney is normal measuring 7.7 x 5 No ascites US/US right upper quadrant IMPRESSION: Echogenic liver suggesting hepatic steatosis. Electronically authenticated by: NÉSTOR CHACON Date: 03/25/2024 13:18 Dictated By: Néstor Chacon M.D. Signed By: 03/25/24 1321 DD/ 1318 TD/TT: Teasel Setter: Procedure Note Radiology, Radiologist, MD - 03/25/2024 [place] [address] Ultrasound Report Signed Patient: NE ROY AMR#: [id number] : 1965Acct:[id number] Age/Sex: 58 / FADM Date: 03/25/24 Loc: US Attending Dr: AngeStaff Physician Olivo Ordering Physician: Mercy Posada M.D. Date of Service: 03/25/24 Procedure(s): US right upper quadrant Accession Number(s): [id number] cc: Sven Martin M.D.; PhysicianMercy M.D. [address] [address] Patient Name: NE ROY MRN: [facility]:[id number] date: 1965 Sex: F Assigned Patient Location: US Current Patient Location: US Accession/Order Number: [id number] Exam Date: 03/25/2024 11:28 Report Date: 03/25/2024 13:18 At the request of: NON-STAFF PHYSICIAN Procedure: US right upper quadrant EXAM: US right upper quadrant HISTORY: Right Upper Quadrant Pain COMPARISON: None. TECHNIQUE: Grayscale, color and Doppler FINDINGS: The visualized pancreas is normal The liver measures 16.1 cm in length. Diffuse increase in hepaticechotexture suggesting hepatic steatosis. No focal mass. Hepatopedal flow in the main portal vein. The gallbladder is normal in appearance. The wall measures 1.4 mm.Negative sonographic Johnson sign. Common bile duct measures 5.2 mm, normal The right kidney is normal measuring 7.7 x 5 No ascites US/US right upper quadrant IMPRESSION: Echogenic liver suggesting hepatic steatosis. Electronically authenticated by: NÉSTOR CHACON Date: 03/25/2024 13:18 Dictated By: Néstor Chacon M.D. Signed By:03/25/24 1321 DD/ 1318 TD/TT: Teasel Setter: us Generic External Data Provider [facility] Final Result documented in this encounter Visit Diagnoses Not on filedocumented in this encounter
--- OUTSIDE RECORDS SUMMARY | 2024-09-20 11:54 | XMS_ITS | Patient Health Record ---
Demographics Address [address] [facility] [address] [place] [address] Mobile Email Address Preferred Language en Marital Status Unknown Cheondoism Affiliation Unknown Race Black or Julia rican Ethnic Group Not or Lati no Author Organization [facility] Address [address] [facility] [id number] Care Team Providers Care [employer] Clerk Name Role Phone eMndy Richardson Primary Care Provider Becky Griffin Unavailable [phone] Allergies No Known Allergies Results Component Value Reference Range Notes Cologuard Reviewed date:07/07/2024 01:03:25 PM Interpretation: Performing Lab: Notes/Report: LIPID PANEL WITH REFLEX TO D IRECT LDL Reviewed date:06/04/2024 01:22:32 PM Interpretation: Performing Lab: Notes/Report: CHOLESTEROL 173 100-199 mg/dL TRIGLYCERIDES 91 20-149 mg/dL VLDL-CHOL, CALCULATED 18 <30 mg/dL HDL-CHOL 52 >=50 mg/dL LDL-CHOL, CALCULATED 103 <130 mg/dL ADULT LDL CHOLESTEROL CLASSIFICATION <100mg/dL Optimal 100-129mg/dL Near/Abo ve Optimal 130-159mg/dL Borderli ne High >160mg/dL High Risk Desirable range <100 mg/dL for patients with CHD or diabetes and <70 mg/dL for diabetic patients with known heart disease. Direct LDL is recommended for patients with triglycerides >400. LDL/HDL 2.0 <4.1 LDL/HDL RATIO MALE FEMALE below average risk <2.3 <2.3 average risk <5.0 <4.1 moderate risk <7.1 <5.6 high risk >7.1 >5.6 CHOL/HDL 3.3 2.0-4.5 TSH WITH T4 REFLEX Reviewed date:06/04/2024 01:22:32 PM Interpretation: Performing Lab: Notes/Report: TSH 1.39 0.270-4.200 uIU/mL The [employer] (ALHAJI) recommends the following reference ranges for TSH levels during : First trimester: 0.1 to 2.5 mIU/L Second trimester: 0.2 to 3.0 mIU/L Third trimester: 0.3 to 3.0 mIU/L HEMOGLOBIN A1C Reviewed date:06/04/2024 01:22:32 PM Interpretation: Performing Lab: Notes/Report: HEMOGLOBIN A1C 5.5 <5.7 % Prediabetes: 5.7% to 6.4% Diabetes: >6.4% Glycemic control for adults with diabetes: <7.0% Use with caution in patients with abnormal hemoglobin variants as the half-life of red blood cells and in vivo glycation rates are affected. AVERAGE WHOLE BLOOD GLUCOSE 111 <126 mg/dl UNLESS OTHERWISE INDICATED, ALL TESTING PERFORMED AT: [employer]. [address] [place] [address] STRAIGHTEDGE MACHINE OPERATOR HELPER: ALBERTO SOLIS M.D. CLIA NUMBER [id number] CAP ACCREDITATION AUID [id number] COMPREHENSIVE METABOLIC PANE L (AMA) Reviewed date:06/04/2024 01:22:32 PM Interpretation: Performing Lab: Notes/Report: GLUCOSE 122 70-100 mg/dL SODIUM 143 135-148 mmol/L POTASSIUM 4.4 3.5-5.4 mmol/L CHLORIDE 107 96-107 mmol/L CO2 22 18-32 mmol/L BUN 19 6-20 mg/dL CREATININE, BLOOD 0.72 0.51-1.15 mg/dL eGFR (2020 CKD-EPI) 98 >59 mL/min/1.73m2 CALCIUM 9.3 8.6-10.5 mg/dL T. PROTEIN 7.6 6.0-8.3 g/dL ALBUMIN 4.4 3.5-5.2 g/dL GLOBULIN 3.2 1.8-3.8 g/dL A/G RATIO 1.4 1.0-2.5 RATIO ALK PHOS 85 30-111 U/L AST-SGOT 17 9-40 U/L ALT-SGPT 13 5-33 U/L T. BILIRUBIN 0.3 <1.3 mg/dL HTRX - Vaginitis Reviewed date:05/31/2024 06:16:16 PM Interpretation: Performing Lab: Notes/Report: DRUGS OF ABUSE 8+ PANEL URIN E - SCREEN REFLEX TO CONFIRMATION Reviewed date:06/12/2024 12:53:23 PM Interpretation: Performing Lab: Notes/Report: Cutoffs for Drug Screen Testing: ETHYL ALCOHOL 20 mg/dL AMPHETAMINES 300 ng/mL BARBITURATES 200 ng/mL BENZODIAZEPINES 100 ng/mL COCAINE 150 ng/mL THC(MARIJUANA) 20 ng/mL METHADONE 300 ng/mL METHAQUALONE 300 ng/mL OPIATES 300 ng/mL OXYCODONE 100 ng/mL PHENCYCLIDINE 25 ng/mL CREATININE, URINARY >=20 mg/dL OXIDANT <=200 mg/L UNLESS OTHERWISE INDICATED, ALL TESTING PERFORMED AT: [employer] [address] [place] [address] STRAIGHTEDGE MACHINE OPERATOR HELPER: ALBERTO SOLIS M.D. CLIA NUMBER [id number] CAP ACCREDITATION AUID [id number] ETHANOL SCREEN, CLINICAL NEGATIVE AMPHETAMINES NEGATIVE BARBITURATES NEGATIVE BENZODIAZEPINE NEGATIVE COCAINE NEGATIVE THC (CANNABIS) NEGATIVE METHADONE NEGATIVE OPIATES NEGATIVE PHENCYCLIDINE NEGATIVE OXYCODONE NEGATIVE CREATININE,URINARY 84.3 OXIDANT 16 THINPREP PAP (age 21-65) Reviewed date:06/29/2024 05:30:44 PM Interpretation: Performing Lab: Notes/Report: SOURCE Unspecified SLIDES: 1 LMP: NOT GIVEN SPECIMEN ADEQUACY: Satisfact ory for evaluation. INTERPRETATION: SEE NOTE NILM/NO EPITH. ABNORMALITY;SEE BELOW NEGATIVE FOR INTRAEPITHELIAL LESION OR MALIGNANCY (NILM) SECRET SERVICE AGENT: SEE NOTE Adela alaniz QC TECHNOLOGIST: SEE NOTE DEBBIE MAGANA(ASCP) LOCATION: Specimens processed and interpreted at [facility], [address] [place] [address], , CLIA: [id number] [facility] [id number] UNLESS OTHERWISE INDICATED, COMPUTER AIDED AND SECRET SERVICE AGENT SCREENING PERFORMED. The Pap test is a screening test with an inherent, but low probability of error. Your patient should be reminded to consult you immediately if she experiences any suspicious signs or symptoms, regardless of her Pap test result. An alternate report format containing images or consolidated prior Pap history is available as applicable. Test performed at [email or web address], [facility]. [address] [place] [address] CLIA Number [id number] [facility] Accreditation Number [id number] UNLESS OTHERWISE INDICATED, ALL TESTING PERFORMED AT: [employer] [address] [place] [address] STRAIGHTEDGE MACHINE OPERATOR HELPER: ALBERTO SOLIS M.D. CLIA NUMBER [id number] [facility] ACCREDITATION AUID [id number] THINPREP HPV HIGH RISK (age 25-65) Reviewed date:07/01/2024 08:39:26 AM Interpretation: Performing Lab: Notes/Report: HPV 16 NEGATIVE HPV 18 NEGATIVE OTHER HR HPV GENOTYPES POSITIVE A Testing methodology is real-time PCR utilizing hydrolysis probes with the Zuly Apryl system. The test individually detects genotypes 16 and 18, as well as the other 12 high risk types (31,33,35,39,45,51,52,56,58 ,59,66,68). The expected result is negative. A negative result does not rule out the presence of HPV not included in the genotype set, a low level of infection or specimen sampling error. Test performed at [email or web address] [address] [place] [address] CLIA Number [id number] CAP Accreditation Number [id number] [facility] [address] [place], [place] [address]IA No. [id number] CAP Accreditation No. [id number] Equipment Sterilizer: Jasmyne Helms M.D. HPV INTERPRETATION POSITIVE NEGATIVE Reason For Referral Reason Pt has fatty liver d isease, non-alcoholic, hx of Hep C, was previously managed by Dr. Leyva Diagnosis 1 Non-alcoholic fatty liver disease (K76.0) Referral Organization Main Referring Provider First Name Mendy Referring Provider Last Name [facility] Referred Provider Anthony vaughan Referred Provider Specialty Gastroentero logy General Notes Ion Meyerreyna 03:09:46 PM >{ {TOFIRSTNAME}} This is [facility] following up on an outstanding referral that was ordered by your provider. Please call our office at , so we can _update our records. Referral Priority Routine Reason Pt would like eval f or weight management options and treatment Diagnosis 1 Obesity, Class II, B OK 35-39.9 (E66.812) Referral Organization Main Referring Provider First Name Mendy Referring Provider Last Name Debra Referred Provider [facility] Referred Provider Specialty Weight Loss General Notes Louise Benítez 08/02 09:25:22 AM >{ {TOFIRSTNAME}} This is [facility] following up on an outstanding referral that was ordered by your provider. Please call our office at , so we can _update our records., Louise Benítez 08/10/2024 12:08:43 PM >no response with appt date, closing per protocol. Referral Priority Routine Medications Medication SIG (Take, Route, Frequency, Duration) Notes Start Date End Date Status Clindamycin Phosphate 2 % 1 applicatorful at bedtime Vaginally Once a day for 8 days As needed Active Vitamin D 50 MCG (1999) 1 capsule Ora lly Once a day for 30 days Active Paliperidone ER 3 MG 2 tablets Orally On ce a day for 30 days Active Sertraline HCl 50 MG 1 tablet Orally Onc e a day for 30 days Active Albuterol Sulfate HFA 108 (90 Base) MCG/ACT Inhalation for 16 Days Active OLANZapine 5 MG 1 tablet Orally Once a day for 30 days Active predniSONE 20 MG Oral for 5 Days Active Doxycycline Hyclate 100 MG Oral for 7 Days Active Phentermine HCl 37.5 MG 1 tablet before breakfast Orally Once a day 06/11/2024 Active Furosemide 40 MG 1 tablet Orally Once a day for 30 days As needed Active Social History Tobacco Use: Social History Observation Description Date Details (start date - stop date) Never Smoker NA - NA Sex Assigned At : Social History Observation Description Sex Assigned At Female Household Question Answer Notes Number of adults in household: P t is currently homeless Tobacco Use/Smoking Question Answer Notes Tobacco use: nonsmoker PRAPARE Question Answer Notes What is your current housing situation? I do not have housing (staying with others, in a hotel, in a longterm, living outside on the street, on a beach, or in a park) Are you worried about losing your housing? Yes What is the highest level of school that you have finished? Less than a high school degree What is your current work situation? Oth erwise unemployed but not seeking work (ex. student, retired, disabled, unpaid primary ambulatory care nurse) In the past year, have you o r any family members you live with been unable to get any of the following when it was really needed? Check all that apply Food,Clothing Has lack of transportation k ept you from medical appointments, meetings, work or from getting things needed for daily living? No How often do you see or talk to people that you care about and feel close to? (For example: talking to friends on the phone, visiting friends or family, going to yazidism or club meetings) Less than once a week How stressed are you? Stress is when someone feels tense, nervous, anxious, or can't sleep at night because their mind is troubled Very much In the past year have you sp ent more than 2 nights in a row in a longterm, detention, intermediate center, or juvenile correctional facility? No Are you a refugee? No What country are you from? [place] Do you feel physically and e motionally safe where you currently live? No In the past year, have you b een afraid of your partner or ex-partner? No PRAPARE Score: 14 Problems Problem Type SNOMED Code ICD Code Onset Dates Problem Status W/U Status Risk Notes Problem [id number] Non-alcoholic fatty liver disease (K76.0) Active confirmed Problem BMI 37.0-37.9, adult (Z68.37) Active confirmed Problem 53899167 Chronic fatigue (R53.82) Active confirmed Problem 459233378 Schizophrenic disorder (F20.9) Active confirmed Vital Signs Heart Rate 93 /min 08/18/2024 Temperature 97.6 degrees Fahrenheit 07/12/2024 Vald ovinos, Omid 07/12/2024 10:03:46 AM EDT > Respiratory Rate 18 /min 07/12/2024 Garcia, Omid 07/12/2024 10:03:46 AM EDT > Height-cm 160.02 cm 08/18/2024 Oximetry 97 % 07/12/2024 Garcia, Ser vando 07/12/2024 10:03:46 AM EDT > Blood pressure diastolic 74 mm Hg 08/18/2024 Weight-kg 95.03 kg 08/18/2024 Height 63.00 in 08/18/2024 Blood pressure systolic 120 mm Hg 08/18/2024 Weight 209.5 lbs 08/18/2024 BMI 37.11 kg/m2 08/18/2024 Encounters Encounter Location Date Provider Diagnosis Main [address] [place], [place] [id number] 05/05/2024 [facility] BMI 36.0-36.9,adult Z68.36 ; Non-alcoholic fatty liver disease K76.0 ; Obesity, Class II, BMI 35-39.9 E66.812 and Medication refill Z76.0 Main [address] [place], [place] [id number] 05/28/2024 [facility] Wellness examination Z00.00 ; Screening for STD (sexually transmitted disease) Z11.3 ; Screening for cardiovascular condition Z13.6 ; Chronic fatigue R53.82 ; Screening for diabetes mellitus Z13.1 ; Screening for colon cancer Z12.11 ; Obesity, Class II, BMI 35-39.9 E66.812 and BMI 37.0-37.9, adult Z68.37 [facility] [address] [facility] [place] [id number] 06/11/2024 [facility] Obesity, Class II, B OK 35-39.9 E66.812 ; Encounter to discuss test results Z71.2 ; BMI 37.0-37.9, adult Z68.37 and High risk medication use Z79.899 Main [address] [place], [place] [id number] 06/24/2024 [facility] Well woman exam Z01. 419 ; Encounter for screening mammogram for malignant neoplasm of breast Z12.31 ; BMI 37.0-37.9, adult Z68.37 ; Obesity, Class II, BMI 35-39.9 E66.812 ; Screening for HPV (human papillomavirus) Z11.51 and Cervical cancer screening Z12.4 Main [address] [place], [place] [id number] 07/12/2024 [facility] BMI 37.0-37.9, adult Z68.37 and Obesity, Class II, BMI 35-39.9 E66.812 Dental Main [address] [place], [place] [id number] 08/18/2024 Becky Griffin BMI 37.0-37.9, adult Z68.37 ; Dietary counseling Z71.3 ; Exercise counseling Z71.82 ; Encounter for screening for dental disorders Z13.84 ; Encounter for dental examination and cleaning with abnormal findings Z01.21 ; Necrosis of pulp K04.1 ; Complete loss of teeth, unspecified cause, class I K08.101 and Partial loss of teeth, unspecified cause, class I K08.401 Main [address] [place], [place] [id number] 05/10/2024 [facility] [address] [place], [place] [id number] 06/14/2024 [facility] [address] [place], [place] [id number] 06/16/2024 [facility] [address] [place], [place] [id number] 06/18/2024 [facility] Assessments Encounter Date Diagnosis (ICD Code) Assessment Notes Treatment Notes Treatment Clinical Notes Section Notes 05/05/2024 BMI 36.0-36.9,adult (ICD-10 - Z68.36) 05/05/2024 Non-alcoholic fatty liver disease (ICD-10 - K76.0) Sending pt a referral to [facility] (Pt desires [facility]) for GI. Informed pt to bring her imaging and lab results for their review. Refilled pt's medications today. F/U 2 months or PRN, pt has Wellness scheduled. 05/28/2024 Screening for STD (sexually transmitted disease) (ICD-10 - Z11.3) Pt desires screening for Chlamydia d/t health department testing, denies recent exposure 05/28/2024 Wellness examination (ICD-10 - Z00.00) Pt is here for wellness today. Overall health is okay. I advised to get baseline tests and pt is agreeable for that. I advised regular exercise and eating a balanced diet with focus on eating less fried and fatty foods and eating more fresh fruits and vegetable in an attempt to achieve and maintain a healthy BMI and PVU We discussed the importance of vaccination including covid shots and yearly flu shots and all questions were answered in detail today. I will call the patient once test results are available for abnormals and also schedule a F/U in 2 weeks 06/11/2024 Encounter to discuss test results (ICD-10 - Z71.2) Discussed recent labs in great detail w/ pt, no concerns at this time 06/11/2024 Obesity, Class II, BMI 35-39.9 (ICD-10 - E66.812) Starting pt on Phentermine 37.5mg 1AM at this time. Pt also follows w/ Anthony Ramirez for health coaching services. Continue working on diet and exercise Completed Controlled Substance Agreement and UDS 06/11/24 ANW F/U 1 month or PRN 06/24/2024 Encounter for screening mammogram for malignant neoplasm of breast (ICD-10 - Z12.31) Pt had mammogram done recently in March in [place] 06/24/2024 Well woman exam (ICD-10 - Z01.419) Completed pap and HPV screening at this time. Breast exam completed, pt UTD on Mammogram Completed STI/Vaginal pathogn screening last month, provided pt w/ negative results. Pt declines symptoms at this time. F/U 2 weeks Weight Management 07/12/2024 BMI 37.0-37.9, adult (ICD-10 - Z68.37) 07/12/2024 Obesity, Class II, BMI 35-39.9 (ICD-10 - E66.812) Continue w/ Adipex at this time, pt has one more refill. Referral sent for [facility] at [facility] at this time. F/U 3 months or PRN 08/18/2024 BMI 37.0-37.9, adult (ICD-10 - Z68.37) 08/18/2024 Dietary counseling (ICD-10 - Z71.3) 06/24/2024 BMI 37.0-37.9, adult (ICD-10 - Z68.37) 06/11/2024 BMI 37.0-37.9, adult (ICD-10 - Z68.37) 05/05/2024 Obesity, Class II, BMI 35-39.9 (ICD-10 - E66.812) 05/28/2024 Screening for cardiovascular condition (ICD-10 - Z13.6) 05/28/2024 Chronic fatigue (ICD-10 - R53.82) 06/11/2024 High risk medication use (ICD-10 - Z79.899) 06/24/2024 Obesity, Class II, BMI 35-39.9 (ICD-10 - E66.812) 08/18/2024 Exercise counseling (ICD-10 - Z71.82) 08/18/2024 Encounter for screening for dental disorders (ICD-10 - Z13.84) 05/28/2024 Screening for diabetes mellitus (ICD-10 - Z13.1) 05/05/2024 Medication refill (ICD-10 - Z76.0) 05/28/2024 Screening for colon cancer (ICD-10 - Z12.11) 06/24/2024 Screening for HPV (human papillomavirus) (ICD-10 - Z11.51) 08/18/2024 Encounter for dental examination and cleaning with abnormal findings (ICD-10 - Z01.21) 08/18/2024 Necrosis of pulp (ICD-10 - K04.1) 06/24/2024 Cervical cancer screening (ICD-10 - Z12.4) 05/28/2024 Obesity, Class II, BMI 35-39.9 (ICD-10 - E66.812) 05/28/2024 BMI 37.0-37.9, adult (ICD-10 - Z68.37) 08/18/2024 Complete loss of teeth, unspecified cause, class I (ICD-10 - K08.101) 08/18/2024 Partial loss of teeth, unspecified cause, class I (ICD-10 - K08.401) Plan Of Treatment Next Appt Details Provider Name:Mendy Richardson , 10/12/2024 09:45:00 AM, [address] [place], [id number], Insurance Providers Payer Name Payer Address Payer Phone Subscriber Number Group Number Insured Name Patient Relationship to Insured Coverage Start Date Coverage End Date zzDParaterrence eppersondimitry Talbot r-Dentaq uest [address] [place] [phone] [id number] Ne Waters Self - patient is the insured 3 3 [employer] ABD JEFRY [address] [address] [place] [address] [id number] Ne Waters Self - patient is the insured [address] JEFRY [address] [place] [phone] [id number] Ne Waters Self - patient is the insured 4 DMedicai d ABD after Caresour ceDentaq uest [address] [place], [place] [phone] [id number] HéctorbereniceNe Self - patient is the insured 3 3 Medicaid ABD after [employer] [address] [place] [address] [id number] Ne Waters Self - patient is the insured 4 DMedicai d CFC after HumanaDe ntaquest [address] [place], [place] [phone] [id number] Ne Waters Self - patient is the insured 5 Medical (General) History Medical History History ICD Code Anxiety and depression F32.9 Anemia, unspecified D64.9 Hepatitis C virus infection resolved aft er antiviral drug therapy Z86.19 Schizophrenia Surgical History Surgery Date(Month/Year) LEAP Procedure tonsillectomy appendectomy Hospitalization History Reason Date(Month/Year) [facility] 10/2022
--- OUTSIDE RECORDS SUMMARY | 2024-09-20 11:54 | XMS_ITS | Clinical Summary ---
Demographics Address [id number] [address] [address] Home Phone Mobile Phone Email Address Preferred Language ENG Marital Status Single Islam Affiliation Unknown Race Black or Julia rican Ethnic Group Not or Lati no Author Organization [facility] Address [address] [place] [address] Care Team Providers Care Supervisor Roving Name Role Phone Unavailable Primary Care Provider Unavailabl e Social History Tobacco Use Types Packs/Day Years Used Date Smoking Tobacco: Never Assessed Area Deprivation Index Answer Date Eh rded National Score (1-100), lowe r number is lower risk 81 09/16/2023 State Score (1-10), lower number is lower risk 7 09/16/2023 Data from: https://www.[email or web address].medicine.[email or web address]/ . Last address used for calculation [address] [facility] 09/16/2023 Comments Unknown Sex and Gender Information Value Date Recorded Sex Assigned at Not on file Legal Sex Female 11:17 AM EDT Gender Identity Not on file Sexual Orientation Not on file Plan of Treatment Health Maintenance Due Date Last Done Comments Anxiety Screening 10/15/1985 Depression Screening 10/15/1985 HIV Screening 10/15/1985 Hepatitis B Vaccine (1 of 3 - 19+ 3-dose series) 10/15/1986 Cervical Cancer Screening 10/15/1988 CT Colonography 10/15/2012 Colonoscopy 10/15/2012 Fecal Occult Blood 10/15/2012 Sigmoidoscopy 10/15/2012 Pneumococcal Vaccine: 50+ (1 of 1 - PCV) 10/15/2017 Shingrix Vaccine (1 of 2) 10/15/2017 Mammogram Screening 05/18/2021 05/18/2020, 02/26/2019, 02/11/2018, Additional history exists Cologuard (FIT-DNA) 06/30/2021 06/30/2018 Colorectal Cancer Screening 06/30/2021 Covid-19 Vaccine ( - 2023-2 5 season) 2023 08/15/2020, 07/18/2020 Influenza Vaccine (Season Ended) 2024 Diabetes Screening 10/17/2025 10/17/2022, 1 05/03/2021, 10/18/2021, Additional history exists Lipid Screening 12/26/2025 12/26/2020, 09/11/2018 DTaP,Tdap,Td Vaccine (2 - Td or Tdap) 04/12/2029 04/12/2019 Hepatitis C Screening Completed 02/26/2019 , 09/01/2018, 09/01/2018, Additional history exists Insurance [id number] 04[address] [address] HUMAN
--- OUTSIDE RECORDS SUMMARY | 2024-09-20 11:54 | XMS_ITS | Clinical Summary ---
Demographics Address [address] [address] Mobile Phone Home Phone Email Address Preferred Language Tristanian Marital Status Single Moravian Affiliation Unknown Race Black or Julia rican Ethnic Group Not or Lati no Author Organization milog tem Address [id number] [address] [place] [address] Care Team Providers Care Application Integrator Name Role Phone No Pcp, No Pcp Primary Care Provider Unavailabl e Allergies No known active allergies Medications furosemide (LASIX) 40 mg tablet Take 40 mg by mouth daily. Active clindamycin (CLEOCIN) 75 mg capsule Take 75 mg by mouth 3 (three) times a day. Active diphenhydrAMINE (BENADRYL) 2 % cream Apply 1 application topically 3 (three) times a day as needed for itching. 30 g 2 Active cholecalciferol , vitamin D3, (VITAMIN D3) 5,000 units capsule Take 5,000 Units by mouth in the morning. Active citalopram (CeleXA) 20 mg tablet Take 20 mg by mouth in the morning. Active ALPRAZolam (XANAX) 0.25 mg tablet Take 0.25 mg by mouth as needed in the morning and 0.25 mg as needed at noon and 0.25 mg as needed in the evening for anxiety. Active sertraline (ZOLOFT) 50 mg tablet Take 50 mg by mouth in the morning. Active HYDROcodone-leslie taminophen (NORCO) 5-325 mg per tablet Take 1 tablet by mouth every 6 (six) hours as needed for pain. Max Daily Amount: 4 tablets Active ketorolac (TORADOL) 10 mg tablet Take 1 tablet (10 mg total) by mouth every 6 (six) hours as needed for pain. Active orphenadrine (NORFLEX) 100 mg 12 hr tablet Take 1 tablet (100 mg total) by mouth in the morning and 1 tablet (100 mg total) before bedtime. Active permethrin (ELIMITE) 5 % cream Apply from chin down to toes and go to bed than in the morning shower off completely. May repeat treatment and 7 days 60 g 4 Active Immunizations Immunization Administration Dates Next Due COVID-19, mRNA, LNP-S, PF, 100mcg/0.5mL Dose 07/2020,07/18/2020 Tdap 04/12/2019 Family History Medical History Relation Name Comments Breast cancer Mother Relation Name Status Comments Mother Social History Tobacco Use Types Packs/Day Years Used Date Smoking Tobacco: Never Smokeless Tobacco: Never Tobacco Cessation:Counseling Given: Not Answered Alcohol Use Standard Drinks/Week Comments No 0 (1 standard drink = 0.6 oz pur e alcohol) AUDIT-C Answer Date Recorded Frequency of Alcohol Consumption Never 02/11/2018 Average Number of Drinks Not on file 018 Frequency of Binge Drinking Not on file 01/14 Childcare Answer Date Recorded Childcare Unknown 09/11/2018 Employment Answer Date Recorded Employment Unknown 09/11/2018 Hunger Screening Answer Date Recorded Within the past 12 months we worried whether our food would run out before we got money to buy more. Often True 09/12/2023 Within the past 12 months th e food we bought just didn't last and we didn't have money to get more. Often True 09/12/2023 Purpose - Life Answer Date Recorded Purpose and direction in life Unknown Comments No Sex and Gender Information Value Date Recorded Sex Assigned at Not on file Legal Sex Female 11:22 AM EDT Gender Identity Not on file Sexual Orientation Choose not to disclose 2020 1:09 PM EST Last Filed Vital Signs Vital Sign Reading Time Taken Comments Blood Pressure 130/77 09/18/2023 6:28 PM EDT Pulse 87 09/18/2023 6:28 PM EDT Temperature 37.2 C (98.9 F) 09/18/2023 6:28 PM EDT Respiratory Rate 18 09/18/2023 6:28 PM EDT Oxygen Saturation 98% 09/18/2023 6:28 PM EDT Inhaled Oxygen Concentration - - Weight 77.1 kg (170 lb) 09/18/2023 6:28 PM EDT Height 160 cm (5' 3 ) 09/18/2023 6:28 PM EDT Body Mass Index 30.11 09/18/2023 6:28 PM EDT Plan of Treatment Health Maintenance Due Date Last Done Comments Depression Screening 1979 Pap Smear 10/15/1988 Zoster (Shingles) Vaccine (2 of 2) 07/30/2020 06/04/2020 Adult BMI Screening 09/17/2024 09/18/2023 Tobacco Screening 09/17/2024 09/18/2023 Influenza Vaccine 12/13/2024 12/30/2023, , 01/23/2021, Additional history exists DTaP,Tdap and Td Vaccines (2 - Td or Tdap) 04/12/2029 04/12/2019 COVID-19 Vaccine Completed 12/30/2023, 03/2022, 08/15/2020, Additional history exists Medical Devices Not on file Insurance [address] [address] [facility] MEDICAID Care Teams Application Integrator Relationship Specialty Start Date End Date No Pcp, [place] [address] PCP - General Family Medicine 11/01/22
[2024-09-20 12:21] VITALS: BP 129/96; PULSE 105; TEMP 36.9; O2SAT 96; BMI 37.2
--- NOTE | 2024-09-20 13:13 | CT_ITS ---
The [address] [address] Patient Name: YOLI ROY MRN: [id number] date: 1965 Sex: F Assigned Patient Location: ER Current Patient Location: ER Accession/Order Number: [id number] Exam Date: 09/20/2024 14:33 Report Date: 09/20/2024 14:35 At the request of: JEANA GONZALEZ MD Procedure: CT head/brain wo con Unenhanced head CT TECHNIQUE: Contiguous axial imaging of the head. The CT exam was performed using one or more the following dose reduction techniques: Automated exposure control, adjustment of the MA and/or Kv according to patient size, or use of the iterative reconstruction technique. COMPARISON: None HISTORY: Right-sided headache. Losing balance. VENTRICLES: Within normal limits ATROPHY: None BRAIN PARENCHYMA: Adequate javed-white matter differentiation identified. HEMORRHAGE: None HERNIATION: No mass effect or herniation INFARCTION: No recent vascular distribution infarction is seen. EXTRA-AXIAL FLUID COLLECTIONS None MIDBRAIN: Unremarkable ARIANNA: Unremarkable MEDULLA: Unremarkable SINUSES: Unremarkable ORBITS: Grossly unremarkable MASTOIDS: Unremarkable BONY STRUCTURES Intact ADDITIONAL FINDINGS: CT/CT head/brain wo con IMPRESSION: No acute findings. Impression dictated by: Jeana Castellon M.D. 09/20/2024 2:35 PM Dictation Location: [place] [address] Electronically authenticated by: [id number] Y Date: 09/20/2024 14:35
--- NOTE | 2024-09-20 16:56 | ED.GENADUL1 ---
HPI HPI - General Adult General Chief complaint: Headache Stated complaint: R SIDE HEAD THROBBING Time Seen by Provider: 09/20/24 13:13 Source: patient Mode of arrival: walk-in Limitations: no limitations History of Present Illness HPI narrative: Patient is a 58-year-old female who has right-sided head fullness to the parietal area intermittently for the last 2 days. Patient has no headache or migraine. No neck pain. No vision or hearing changes. No meningeal signs or symptoms. Patient states she has a odd funny feeling to the right side of her head for the past 2 days. No rash. No trauma. Patient chief concern is brain abnormality/brain cancer All systems are negative except as noted/marked. All systems reviewed and otherwise negative. Nurses note and vital signs reviewed and patient is not hypoxic. General: The patient appears well and in no apparent distress. Patient is resting comfortably on cart. Patient is not toxic, lethargic, or listless Skin: Warm, dry, no pallor noted. There is no rash noted. No petechiae, purpura. Head: Normocephalic, atraumatic; patient has full range of motion of cervical spine with no difficulty. No midline or paracervical tenderness palpation. Full range of motion of cervical spine, no meningeal signs or symptoms. No scalp hematoma. No rash. No tenderness to palpation to bilateral frontal or maxillary sinus. Eye: Normal conjunctiva, no drainage, EOMI. PERRL Ears, Nose, Mouth, and Throat: oral mucosa is moist. Nares patent. Mouth without vesicles. Cardiovascular: Regular Rate and Rhythm, no murmur, gallop, rub Respiratory: Patient is in no distress, no accessory muscle use, lungs are clear to auscultation, no wheezing, rales or rhonchi Back: non-tender, no CVA tenderness bilaterally to percussion. No CT LS midline pain GI: no tenderness to palpation, no masses appreciated. No rebound, guarding, or rigidity noted. No distention Musculoskeletal: Patient has full range of motion of all of the extremities, no motor, sensory, or focal neurological deficits Neurological: A&O x4, normal speech Psychiatric: Cooperative Related Data Home Medications ?Medication ?Instructions ?Recorded ?Confirmed albuterol sulfate 90 mcg/actuation 2 inh inhalation Q6H PRN shortness 09/20/24 09/20/24 aerosol inhaler of breath or wheezing cholecalciferol (vitamin D3) 50 2,000 unit PO DAILY 09/20/24 09/20/24 mcg (2,000 unit) capsule furosemide 40 mg tablet 40 mg PO DAILY 09/20/24 09/20/24 olanzapine 5 mg tablet 5 mg PO DAILY 09/20/24 09/20/24 sertraline 50 mg tablet 50 mg PO Q24H 09/20/24 09/20/24 Allergies Allergy/AdvReac Type Severity Reaction Status Date / Time No Known Drug Allergies Allergy Verified 09/20/24 12:21 PFSH PFSH Social History Little interest or pleasure in doing things: not at all Feeling down, depressed, or hopeless: not at all Exam Constitutional Vital Signs, click to edit/add: Last Vital Signs Temp 98.5 F 09/20/24 12:21 Pulse 105 H 09/20/24 12:21 Resp 18 09/20/24 12:21 BP 129/96 H 09/20/24 12:21 Pulse Ox 96 09/20/24 12:21 O2 Del Method Room Air 09/20/24 12:21 Course Vital Signs Vital signs: Vital Signs Temperature 98.5 F 09/20/24 12:21 Pulse Rate 105 H 09/20/24 12:21 Respiratory Rate 18 09/20/24 12:21 Blood Pressure 129/96 H 09/20/24 12:21 Pulse Oximetry 96 09/20/24 12:21 Oxygen Delivery Method Room Air 09/20/24 12:21 Temperature 98.5 F 09/20/24 12:21 Pulse Rate 105 H 09/20/24 12:21 Respiratory Rate 18 09/20/24 12:21 Blood Pressure 129/96 H 09/20/24 12:21 Pulse Oximetry 96 09/20/24 12:21 Oxygen Delivery Method Room Air 09/20/24 12:21 Medical Decision Making MDM Narrative Medical decision making narrative: CT of the brain showed no acute abnormality. A copy of the report was given to the patient. Patient was in the ER for a lengthy amount of time, blame less apologies were given. Patient was extremely happy CT of the brain showed no acute abnormalities. Patient was told to follow-up with PCP or neurologist as needed for additional tests. Patient was happy with this plan, no questions at discharge. No acute findings on physical exam. Discharge Plan Discharge Chief Complaint: Headache Clinical Impression: Fullness in head Patient Disposition: Home, Self-Care Time of Disposition Decision: 16:56 Prescriptions / Home Meds: No Action albuterol sulfate 90 mcg/actuation HFA aerosol inhaler 2 inh INHALATION Q6H PRN (Reason: shortness of breath or wheezing) cholecalciferol (vitamin D3) 50 mcg (2,000 unit) capsule 2,000 unit PO DAILY furosemide 40 mg tablet 40 mg PO DAILY olanzapine 5 mg tablet 5 mg PO DAILY sertraline 50 mg tablet 50 mg PO Q24H Print Language: Luxembourgish Instructions: Atypical Facial Pain (ED) Additional Instructions: Follow-up with PCP for further intervention as needed. Return back to the ER for any other acute complications Referrals: [facility] [Primary Care Provider] - 1 week Discharge Date/Time: 09/20/24 17:02
== END 2024-09-20 17:02 | disposition home or self-care (01) ==
PROVIDERS: Emergency Provider Emergency Medicine
DX: R68.89 Other general symptoms and signs (principal)
CPT/HCPCS: 70450; 99284

== ENCOUNTER 2025-02-04 09:39 | Outpatient (OUT) | payer MEDICAID, SELFPAY ==
--- OUTSIDE RECORDS SUMMARY | 2024-05-11 05:45 | XMS_ITS ---
Demographics Address [address] [address] Mobile Email Address m Preferred Language en Marital Status Unknown Adventist Affiliation Unknown Race Black or Julia rican Ethnic Group Not or Lati no Author Organization [facility] vices Address [address] [place] [id number] Care Team Providers Care Utility Lineman Name Role Phone Mendy Richardson Primary Care Provider REASON FOR VISIT Wellness Medications Medication SIG (Take, Route, Frequency, Duration) Notes Start Date End Date Status Amoxicillin 500 MG [address] ee times a day, for 10 days; Duration: 10 days Not-TakingNaproxen 500 MG1 tablet with food or milk as needed Orally every 12 hrs; Duration: 10 daysNot-TakingFurosemide 40 MG 1 tablet Orally Once a day; Duration: 30 days As needed ActiveClindamycin Phosphate 2 % 1 applicatorful at bedtime Vaginally Once a day; Duration: 8 days As needed ActiveVitamin D 50 MCG (1999 UT)1 capsule Orally Once a day; Duration: 30 days ActivePaliperidone ER 3 MG2 tablets Orally Once a day; Duration: 30 daysActive Sertraline HCl 50 MG1 tablet Orally Once a day; Duration: 30 daysActive OLANZapine 5 MG1 tablet Orally Once a day; Duration: 30 daysActive Social History Sex Assigned At : Social History Observation Description Sex Assigned At Female Encounters Encounter Location Date Provider Diagnosis Main [address] [place] [id number] 05/11/2024 Mendy Richardson Plan Of Treatment No Information Progress Notes * Ne ROYDOB: [birth year] (59 yo F)Acc No.[id number]:05/11/2024 Medical Note Patient: Ne KILGORE :?Mendy RichardsonDOB:1965???Age:58 Y???Sex: FemaleDate:05/11/2024Phone:[phone]:[address] [facility] [address], [place], [place] Subjective: * Chief Complaints: * 1 . Wellness. * Medical History: * Medications: T aking Furosemide 40 MG Tablet 1 tablet Orally Once a day As needed, Taking Vitamin D 50 MCG (1999 UT) Capsule 1 capsule Orally Once a day , Taking Clindamycin Phosphate 2 % Cream 1 applicatorful at bedtime Vaginally Once a day As needed, Taking Sertraline HCl 50 MG Tablet 1 tablet Orally Once a day , Taking Paliperidone ER 3 MG Tablet Extended Release 24 Hour 2 tablets Orally Once a day , Taking OLANZapine 5 MG Tablet 1 tablet Orally Once a day , Not-Taking/PRN Amoxicillin 500 MG Capsule 1 capsule Orally Three times a day, for 10 days , Not-Taking/PRN Naproxen 500 MG Tablet 1 tablet with food or milk as needed Orally every 12 hrs Objective: * Vitals: Assessment: Plan: * Treatment: * Billing Information: * Visit Code: * Procedure Codes: * Electronic signature of BHARGAV Medrano on 02/04/2025 at 09:42 AM EDTSign off status: Pending * Provider: Megha Richardson Date: 0 05/11/2024 Generated for Printing/Faxing/eTransmitting on:?02/04/2025 09:42 AM EDT
--- OUTSIDE RECORDS SUMMARY | 2024-07-09 07:00 | XMS_ITS ---
Author Organization [facility] vices Address [address] [place] [id number] Care Team Providers Care B2B Managed Service Sales Exec Name Role Phone Mendy Richardson Primary Care Provider [phone] REASON FOR VISIT f/u Social History Sex Assigned At : Social History Observation Description Sex Assigned At Female Encounters Encounter Location Date Provider Diagnosis Main [address] [place] [id number] 07/09/2024 Mendy Richardson Plan Of Treatment No Information Progress Notes * Ne ROYDOB: [birth year] (59 yo F)Acc No.[id number]:07/09/2024 Medical Note Patient: Ne KILGORE :?Mendy RichardsonDOB:1965???Age:58 Y???Sex: FemaleDate:07/09/2024Phone:[phone]:[address] [facility], [address] [place], [place] Subjective: * Chief Complaints: * 1 . F/u. * Medical History: Objective: * Vitals: Assessment: Plan: * Treatment: * Billing Information: * Visit Code: * Procedure Codes: * Electronic signature of BHARGAV Medrano on 02/04/2025 at 09:42 AM EDTSign off status: Pending * Provider: Megha Richardson Date: 0 07/09/2024 Generated for Printing/Faxing/eTransmitting on:?02/04/2025 09:42 AM EDT
--- NOTE | 2025-02-04 09:42 | MM_ITS ---
Patient Name: YOLI ROY MR#: [id number] : 1965 Exam Date: 02/04/2025 Ordering Doctor: CASIMIRO CERDA RADIOLOGY REPORT PROCEDURE: MM TOMOSYNTHESIS SCREENING BI COMPARISON: MM TOMOSYNTHESIS SCREENING BI, 01/28/2024. MG MAMM SCREEN ETTA W CAD, 05/18/2020. MG MAMM SCREEN ETTA W CAD, 02/26/2019. INDICATIONS: screening Calculator Name NCI Breast Cancer Risk Assessment Tool 5 Year Breast Cancer Risk Not Reported. Lifetime Breast Cancer Risk Not Reported. Personal Breast Cancer No Personal Ovarian Cancer No Treatments None Family Cancers None LOCATION: [facility] BREAST COMPOSITION: The breasts are heterogeneously dense, which may obscure small masses. FINDINGS: RIGHT BREAST: No significant suspicious finding. Benign-appearing lymph nodes are noted along the chest wall . LEFT BREAST: No significant suspicious finding. Benign-appearing lymph nodes are noted along the chest wall. Benign-appearing calcification is present. DIAGNOSTIC CATEGORY 2--BENIGN FINDING. NO CHANGE FROM COMPARISON. RECOMMENDATIONS: ROUTINE MAMMOGRAM AND CLINICAL EVALUATION IN 12 MONTHS. Dictated by: Selwyn Wilkinson MD on 02/04/2025 at 13:50 Approved by: Selwyn Wilkinson MD on 02/04/2025 at 13:52
--- OUTSIDE RECORDS SUMMARY | 2025-02-04 09:42 | XMS_ITS | Clinical Summary ---
Demographics Address [address] [facility] [address] [place] [address] Home Phone Email Address Preferred Language en Marital Status Single Amish Affiliation Unknown Race Black or Julia rican Ethnic Group Unknown Author Organization [facility] Address [address] [place] [address] Care Team Providers Care Forest Pathology Associate Professor Name Role Phone Unavailable Primary Care Provider Unavailabl e Source Comments The following information is NOT included in Care Everywhere downloads:Psychiatric notes, ECG results, Cardiac Rehab notes, Pulmonary Function notes, data from SmartForms (includes but not limited toPregnancy data,audiograms, eye exams, pre-surgical evaluation notes, well-child exam data).[facility] Social History Tobacco UseTypesPacks/DayYears UsedDateSmoking Tobacco: Never Assessed CommentsUnknownSex and Gender InformationValueDate RecordedSex Assigned at Not on fileLegal WlkYoihwn37/22/2025 3:40 PM EDTGender IdentityNot on fileSexual OrientationNot on file Plan of Treatment DateTypeDepartmentCare Team (Latest Contact Info)Qxdelocldlh00/12/2025 10:00 AM ESTOffice Visit [facility] Oral Surgery [address] [place], [place] [id number] Kelton Pruitt DMD [address] [place] [id number] Health MaintenanceDue DateLast VqxbQdbfslpnAsmrsnnzhuk85/04/1968HIV Test 10/15/1982Hepatitis C Kpervkfn54/04/1986Tdap Qlzbyiw6810/15/1985Hepatitis A (HAV) Vaccine (optional start 19+ years)10/15/1986Hepatitis B (HBV) Vaccine (1 of 3 - 19+ 3-dose series)10/15/1986Tetanus (Td or Tdap) Lstzgbv5710/15/1986Pap Smear 10/15/19885537Hklaaxvkcus09/04/2008CRC Kjrisayjm91/04/9246Cgmavnguueb81/04/2013 Cologuard (Stool DNA)10/15/2012FIT10/15/2012Pneumococcal Vaccine(s) (50+ yrs) (1 of 1 - PCV)10/15/2017Shingles (RZV) Vaccine (1 of 2)10/15/2017COVID-19 Vaccine (1 - 2024- season)2024Influenza Vaccine (#1)2024 Insurance * Guarantor: Ne WatersAccount TypeRelation to PatientDate of BirthPhone Billing AddressPersonal/YjfouoChhh06/04/1966 [address] [address] * Guarantor: Ne WatersAccobull TypeRelation to PatientDate of BirthPhone Billing YidvxlbWbprhtnekvevmJpqv33/04/1966 [address] [address]
--- OUTSIDE RECORDS SUMMARY | 2025-02-04 09:42 | XMS_ITS | Clinical Summary ---
Demographics Address [address] [address] Mobile Phone Home Phone Email Address Preferred Language Albanian Marital Status Single Rastafari Affiliation Unknown Race Black or Julia rican Ethnic Group Not or Lati no Author Organization Scal[place] tem Address [id number] [address] [place] [address] Care Team Providers Care Portrait Artist Name Role Phone No Pcp, No Pcp Primary Care Provider Unavailabl e Allergies No known active allergies Medications MedicationSigDispense QuantityRefillsLast FilledStart DateEnd DateStatus furosemide (LASIX) 40 mg tablet Take 40 mg by mouth daily. Active clindamycin (CLEOCIN) 75 mg capsule Take 75 mg by mouth 3 (three) times a day.Active diphenhydrAMINE (BENADRYL) 2 % cream Apply 1 application topically 3 (three) times a day as needed for itching. 30 g 06/15/2021ctive cholecalciferol, vitamin D3, (VITAMIN D3) 5,000 units capsule Take 5,000 Units by mouth in the morning.Active citalopram (CeleXA) 20 mg tablet Take 20 mg by mouth in the morning.Active ALPRAZolam (XANAX) 0.25 mg tablet Take 0.25 mg by mouth as needed in the morning and 0.25 mg as needed at noon and 0.25 mg as needed in the evening for anxiety.Active sertraline (ZOLOFT) 50 mg tablet Take 50 mg by mouth in the morning.Active HYDROcodone-acetaminophen (NORCO) 5-325 mg per tablet Take 1 tablet by mouth every 6 (six) hours as needed for pain. Max Daily Amount: 4 tabletsActive ketorolac (TORADOL) 10 mg tablet Take 1 tablet (10 mg total) by mouth every 6 (six) hours as needed for pain. Active orphenadrine (NORFLEX) 100 mg 12 hr tablet Take 1 tablet (100 mg total) by mouth in the morning and 1 tablet (100 mg total) before bedtime.Active permethrin (ELIMITE) 5 % cream Apply from chin down to toes and go to bed than in the morning shower off completely. May repeat treatment and 7 days 60 g 4Active Immunizations ImmunizationAdministration DatesNext DueCOVID-19, mRNA, LNP-S, PF, 100mcg/0.5mL Dose08/15/2020,07/18/2020Tdap1 Family History Medical HistoryRelationNameCommentsBreast cancerMotherRelationNameStatusComments Mother Social History Tobacco UseTypesPacks/DayYears UsedDateSmoking Tobacco: NeverSmokeless Tobacco: Never Tobacco Cessation:Counseling Given: Not Answered Alcohol UseStandard Drinks/WeekCommentsNo0 (1 standard drink = 0.6 oz pure alcohol)AUDIT-CAnswerDate RecordedFrequency of Alcohol ConsumptionNever 02/11/2018Average Number of DrinksNot on file02/11/2018Frequency of Binge DrinkingNot on file02/11/2018ChildcareAnswerDate RecordedChildcareUnknown 09/11/2018EmploymentAnswerDate YywzsjolTjsvqkijxeHznwuuk90/31/2019Hunger ScreeningAnswerDate RecordedWithin the past 12 months we worried whether our food would run out before we got money to buy more.Often True09/12/2023Within the past 12 months the food we bought just didn't last and we didn't have money to get more.Often True4Purpose - LifeAnswerDate RecordedPurpose and direction in mqyxBfyayxf53/28/2021CommentsNoSex and Gender Information ValueDate RecordedSex Assigned at BirthNot on fileLegal VhfUgeeqs86/06/2015 11:22 AM EDTGender IdentityNot on fileSexual OrientationChoose not to disclose 03/31/2021 1:09 PM EST Last Filed Vital Signs Vital SignReadingTime TakenCommentsBlood Yhyxbsma555/7706 6:28 PM EDT Voxww9935 6:28 PM WFSTgglanshywr78.2 ??C (98.9 ??F)09/18/2023 6:28 PM EDTRespiratory Xxgz706009/18/2023 6:28 PM EDTOxygen Jolyrxwgix72%09/18/2023 6:28 PM EDTInhaled Oxygen Concentration--Snmlab07.1 kg (170 lb)09/18/2023 6:28 PM EDT Jaqtmg356 cm (5' 3 )09/18/2023 6:28 PM EDTBody Mass Index30.11009/18/2023 6:28 PM EDT Plan of Treatment Health MaintenanceDue DateLast DoneCommentsDepression Fkjutftpb71/04/1980Pap Smear10/15/1988Zoster (Shingles) Vaccine (2 of 2)/dult BMI Owbeqozxp77/09/2023Tobacco Sjkdrtqho40/09/2023Influenza Rnqnmwy57/, 04/18/2023, 01/23/2021, Additional history exists DTaP,Tdap and Td Vaccines (2 - Td or Tdap)COVID-19 Vaccine Eyupeerva67/17/2024, 04/25/2021, 08/15/2020, Additional history exists Medical Devices Not on file Insurance * Guarantor: Ne Waters AAccount TypeRelation to PatientDate of PhoneBilling AddressPersonal/LpoeyvQmhy12/04/1966 [address] [address] Care Teams Team MemberRelationshipSpecialtyStart DateEnd Date No [place], [place] [address] PCP - [facility]11/01/22
--- OUTSIDE RECORDS SUMMARY | 2025-02-04 09:42 | XMS_ITS | Clinical Summary ---
Author Organization [facility] Address [address] [place] [address] Care Team Providers Care Upset Operator Name Role Phone Unavailable Primary Care Provider Unavailabl e Social History Tobacco UseTypesPacks/DayYears UsedDateSmoking Tobacco: Never Assessed CommentsUnknownSex and Gender InformationValueDate RecordedSex Assigned at Not on fileLegal CedIhvqey55/15/2023 8:22 PM EDTGender IdentityNot on fileSexual OrientationNot on file Last Filed Vital Signs Vital SignReadingTime TakenCommentsBlood Pressure--Pulse--Temperature-- Respiratory Rate--Oxygen Saturation--Inhaled Oxygen Concentration--Qbwmxw74.2 kg (190 lb)02/12/2018 12:00 PM KRYOpkmka956 cm (5' 3 )02/12/2018 12:00 PM EDTBody Mass Index33.6602/12/2018 12:00 PM EDT Plan of Treatment Not on file
--- OUTSIDE RECORDS SUMMARY | 2025-02-04 09:43 | XMS_ITS | CCD ---
Demographics Address [address] [facility] [address] [place], [place] [id number] Preferred Language en Marital Status Jain Affiliation Unknown Race Black or Julia rican Ethnic Group Unknown Author Organization [facility] Care Team Providers Care [place] Aide Name Role Phone PHYSICIAN, DEFAULT Unavailable Unavailable PHYSICIAN, DEFAULT Unavailable Unavailable DR CASSIUS BHANDARI Primary Care Unavailable SUZIE DIAZ Admitting Unavailable SUZEI DIAZ Attending Unavailable DR NÉSTOR CHACON V Consulting Unavailable JOHN GALLO Consulting Unavailable DR CASSIUS BHANDARI Primary Care Unavailable SUZIE DIAZ Admitting Unavailable SUZIE DIAZ Attending Unavailable JOHN THOMAS Consulting Unavailable Jhonny Bhat Attending Unavailab le NO FAMILY, PHYSICIAN Primary Care Unavailable Perlita, Jhonny Admitting Unavailab le Perlita Jhonny Admitting Unavailab le Perlita, Jhonny Attending Unavailab le NO FAMILY, PHYSICIAN Primary Care Unavailable NO PCP, NO PCP Primary Care Unavailable ROSARIO DAVIS Attending Unavaila ble NO PCP, NO PCP Primary Care Unavailable NELIA CUNNINGHAM Referring Unavailable NO PCP, NO PCP Primary Care Unavailable Radha Flynn Attending Unavailable SHAMMO, ONESIMO Primary Care Unavailable MARS RICHARDSON Primary Care Unavailable SHAMMO, ONESIMO Primary Care Unavailable Gudimella, Lily Attending Unavailable SHAMMO, ONESIMO Primary Care Unavailable Gudimella, Lily Attending Unavailable Gudimella, Lily Admitting Unavailable Gudimella, Lily Attending Unavailable SHAMMO, ONESIMO Primary Care Unavailable Radha Flynn Attending Unavailable Radha Flynn Attending Unavailable SHAMMO, ONESIMO Primary Care Unavailable Gudimella, Lily Admitting Unavailable Gudimella, Lily Attending Unavailable Mouchli, Mohamad A. Attending Unavailable Gudimella, Lily Attending Unavailable Radha Flynn Referring Unavailable Radha Flynn Admitting Unavailable Radha Flynn Attending Unavailable Medications Current Medications MedicationDrug Class(es)DatesSig (Normalized)Sig (Original)Albuterol Sulfate 90 mcg/actuation HFA aerosol inhaler (1 source)Start: 52-03-2301Loidgwwck Sulfate 90 mcg/actuation HFA aerosol inhaler Active 2 INH INHALATION EVERY 4-6 HOURS as needed for shortness of breath or wheezing 6.7 August 12, 2024 12:00amcholecalciferol 0.05 mg oral capsule (1 source)Vitamin DStart: 34-24-4566legu 1 capsule by mouth once daily Cholecalciferol (Vitamin D3) 50 mcg (2,000 unit) capsule Active 50 MCG PO Daily August 12, 2024 12:00amdoxycycline hyclate 100 mg oral capsule (1 source)Tetracycline-class DrugStart: 80-69-5074cmsa 1 capsule by mouth twice dailyDoxycycline Hyclate 100 mg capsule Active 100 MG PO Twice daily 14 7 August 12, 2024 12:00amfurosemide 40 mg oral tablet (1 source)Loop DiureticStart: 51-76-4242tzso 1 tablet by mouth once daily Furosemide 40 mg tablet Active 40 MG PO Daily August 12, 2024 12:00amOLANZapine 5 mg oral tablet (1 source)Atypical AntipsychoticStart: 78-74-0517oxuc 1 tablet by mouth at bedtime as neededOlanzapine 5 mg Tablet Active 5 MG PO Bedtime as needed for Agitation October 21, 2022 12:00am24 hr paliperidone 3 mg extended release oral tablet (1 source)Atypical AntipsychoticStart: 99-59-1038kujy 1 tablet by mouth every twenty-four hours at bedtimePaliperidone 3 mg Tablet Extended Release 24 Hr Active 6 MG PO Bedtime October 20, 2022 12:00amphentermine hydrochloride 37.5 mg oral tablet (1 source)Sympathomimetic Amine AnorecticStart: 11-45-0560lnfb 1 tablet by mouth once daily 30 minutes after breakfastPhentermine (Adipex-P) 37.5 mg tablet Active 37.5 MG PO Daily May 1st, 2025 12:00am must vniallkgqx57 minutes before or 1-2 hours after breakfastpredniSONE 20 mg oral tablet (1 source)Start: 15-11-7003vqbg 1 tablet by mouth every twelve hoursPrednisone 20 mg tablet Active 20 MG PO Every 12 hours 10 August 12, 2024 12:00amsertraline 50 mg oral tablet (1 source)Serotonin Reuptake InhibitorStart: 16-89-2883vbmr 1 tablet by mouth once dailySertraline 50 mg tablet Active 50 MG PO Daily August 12, 2024 12:00am Problems Active Problems Problem ClassificationProblemDateDocumented DateEpisodic/ChronicAbdominal pain (1 source)Right upper quadrant pain; Translations: [Right upper quadrant pain] Onset: 10-41-1068XpzlzfwqPxsirxn disorders (1 source)Anxiety disorder, unspecified; Translations: [ANXIETY DISORDER UNSPECIFIED]Onset: 14-43-4431LrpdtrjHphgdexxfvzmk symptoms and ill-defined conditions (1 source)Dysuria; Translations: [Dysuria]Onset: 63-57-5702TnbhbqemTmwdozmbuywqx (1 source)Localized enlarged lymph nodes; Translations: [Localized enlarged lymph nodes]Onset: 23-12-4607JyhjdairGjyy disorders (2 sources)Major depressive disorder, single episode, unspecified; Translations: [Depressive disorder]Onset: 878845-07-6855CyqxzrcXeqgmvklhku deficiencies (1 source)Vitamin D deficiency; Translations: [Vitamin D deficiency, unspecified]23-74-4436ZuwgxkfOcnuv connective tissue disease (4 sources)Pain in right leg; Translations: [PAIN IN RIGHT LEG]Onset: 03-01-2022 EpisodicOther lower respiratory disease (1 source)Respiratory tract infection; Translations: [Other specified respiratory disorders]89-42-5153GptlhgduExtvi lower respiratory disease (1 source)Other specified respiratory disorders; Translations: [Other diseases of respiratory system, not elsewhere classified]47-50-5103ZxwckdzkQuvhyojnykqnc and other psychotic disorders (2 sources)Unspecified psychosis not due to a substance or known physiological condition; Translations: [Psychotic disorder]Onset: 721999-04-2466Qubvwsu Comment on above:Problem List clean-up per request of Phys. EHR CmteUnclassified (1 source)RashOnset: 18-27-2501Qwzwkcntaftn (1 source)Medical ClearanceOnset: 09-12-2023 Past or Other Problems Problem ClassificationProblemDateDocumented DateEpisodic/ChronicBacterial infection; unspecified site (1 source)Other specified bacterial agents as the cause of diseases classified elsewhere; Translations: [Other specified bacterial agents as the cause of diseases classified elsewhere]Onset: 02-26-8671UpmfozolLaczthmelstm diseases of female pelvic organs (2 sources)Acute vaginitis; Translations: [Vaginitis]Onset: 35-22-6628Fowzsogx Other aftercare (1 source)Other terminal system operator (current) drug therapy; Translations: [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]Onset: 97-17-3053MslmzkpnQrogj infections; including parasitic (2 sources)Scabies; Translations: [SCABIES]Onset: 24-34-6665ZjcsipclFkpki skin disorders (3 sources)Rash and other nonspecific skin eruption; Translations: [RASH OTH NONSPECIFIC SKIN ERUPTION]Onset: 49-27-9812Qfeuigvk Results Test NameValueInterpretationReference RangeFacilityAmbulatory Visit Summaryon [id number] Visit SummaryAmbulatory Visit Summary NE ROY :1965 Visit Date:12/06/2024 Ambulatory Visit Instructions Your Diagnosis Right upper quadrant abdominal pain Fatty liver, NAFLD (nonalcoholic fatty liver disease) History of hepatitis C Weight gain Constipation Bloating Your Care Team Attending Physician - Rina GREWAL, Radha Rivera Primary Care Physician - Lily Nguyen MD This Is Your Medications List hyoscyamine (Levsin 0.125 mg SL Tab) Contact prescribing physician if questions or concerns clindamycin topical (clindamycin 2% vaginal cream) ergocalciferol (Vitamin D 50,000 intl units (1.25 mg) oral capsule) furosemide (furosemide 40 mg Tab) multivitamin, ( Multivitamins with Folate 1700 mcg DFE oral capsule) sertraline (sertraline 50 mg Tab) tirzepatide (Mounjaro 5 mg/0.5 mL subcutaneous solution) Procedures Performed Appendectomy, LEEP, Tonsillectomy. Discharge Vitals Respiratory Rate 16 Blood Pressure 114/84 Height 160 cm Height 63 in Weight 100.9 kg Weight 222.446 lb BMI 39.41 What to do next Scheduled Follow-Up Appointments Friday 12:20 PM EST With: Lily Nguyen MD Where: [address] [address]- Medications What How Much When Why Instructions New hyoscyamine (Levsin 0.125 mg SL Tab) 2 Tablets By Mouth 4 times a day as needed for for spasm Right upper quadrant abdominal pain Fatty liver NAFLD (nonalcoholic fatty liver disease) History of hepatitis C Weight gain Pickup at [facility] Unchanged clindamycin topical (clindamycin 2% vaginal cream) 1 Application Vaginal Once a day (at bedtime) Contact prescribing physician if questions or concerns Unchanged ergocalciferol (Vitamin D 50,000 intl units (1.25 mg) oral capsule) 1 Capsules By Mouth Every week Vitamin D deficiency Contact prescribing physician if questions or concerns Unchanged furosemide (furosemide 40 mg Tab) 1 Tablets By Mouth Every day as needed for Edema Contact prescribing physician if questions or concerns Unchanged multivitamin, ( Multivitamins with Folate 1700 mcg DFE oral capsule) 1 Capsules By Mouth Every day Contact prescribing physician if questions or concerns Unchanged sertraline (sertraline 50 mg Tab) 1 Tablets By Mouth Every day Contact prescribing physician if questions or concerns Unchanged tirzepatide (Mounjaro 5 mg/ 0.5 mL subcutaneous solution) 5 Milligram Subcutaneous Every week NAFLD (nonalcoholic fatty liver disease) BMI 39.0- 39.9,adult Contact prescribing physician if questions or concerns Pharmacy Information [facility]: [address] [place], [place] [id number] [phone] Allergies No Known Allergies Problems Ongoing - Any problem that you are currently receiving treatment for. Abdominal pain Anxiety Bloating Constipation Depression Fatty liver History of hepatitis C Morbid obesity NAFLD (nonalcoholic fatty liver disease) Right upper quadrant abdominal pain Weight gain Historical - Any problem that you are no longer receiving treatment for. Hepatitis C Patient Survey You may receive a survey via text or e-mail asking about your office visit. Please share your experience with us by completing your survey. We appreciate your feedback and thank you for choosing us for your care. Patient Portal You may access all of your results and other medical record information on our secure patient portal. If you are not signed up for this yet, please contact [employer] at [phone] to get signed up today. Language Information Language assistance services are available as needed. [facility]/Clinic Noteon [id number] Office/Clinic NoteGastroenterology Office/Clinic Note Chief Complaint 8 week f/u HPI Staff EST, 59 year old female who presents today for a 8 week follow up. Denies episodes of sharp abdominal pain C/o gas, bloating Has been constipated, about 1 BM a week Recently started Mounjaro, constipation worse since starting Last visit w/ Dr Flynn History of Present Illness pt still with pain in the right side with bending and with eating sweets pain lasts for 15-20 minutes severe Assessment/Plan 1. Fatty liver (K76.0: Fatty (change of) liver, not elsewhere classified) 2. Right upper quadrant abdominal pain (R10.11: Right upper quadrant pain) 3. History of hepatitis C (Z86.19: Personal history of other infectious and parasitic diseases) 4. Weight gain (R63.5: Abnormal weight gain) Patient continues to gain weight. She tried adipiex which did not help. Will refer to weight loss clinic Obtain HIDA scan Advised to continue to work on losing weight and eating healthy HIDA 11/24/24 IMPRESSION: Patent cystic and common bile ducts. No evidence of acute cholecystitis. Normal gallbladder ejection fraction. No evidence of chronic cholecystitis. History of Present Illness I have reviewed HPI staff note, most recent labs and imaging, I agree with the above documentation with the following additions/exceptions : pt started munjaro and it gave her constipation has not tried NYTHIGN FOR IT YET some bloating Review of Systems PHQ Score Initial Depression Screen Score: 0 SCORE All systems reviewed, negative except as mentioned above Physical Exam Vitals & Measurements RR: 16 BP: 114/84 HT: 160 cm HT: 63 in WT: 100.9 kg WT: 222.446 lb BMI: 39.41 General: alert, no acute distress HEENT: atraumatic normocephalic Cardiovascular: regular rate and rhythm, normal peripheral perfusion Respiratory: Lungs CTA, respirations non labored Extremities: no deformity, no trauma Abdomen: Benign, soft, nontender distended Assessment/Plan 1. Right upper quadrant abdominal pain (R10.11: Right upper quadrant pain) Ordered: hyoscyamine, 0.25 mg = 2 tab(s), Oral, QID, PRN for spasm, # 80 tab(s), Refills(s) 0, Pharmacy: [facility], 160, cm, 12/06/24 12:22:00 EDT, Height/Length Dosing, 100.9, kg, 12/06/24 12:22:00 EDT, Weight Dosing Current tobacco non-user 1036F Most recent diastolic blood pressure 80-89 mm Hg 3079F Systolic BP <130 mm Hg (Most Recent) 3074F 2. Fatty liver, (K76.0: Fatty (change of) liver, not elsewhere classified)NAFLD (nonalcoholic fattyliver disease) Ordered: hyoscyamine, 0.25 mg = 2 tab(s), Oral, QID, PRN for spasm, # 80 tab(s), Refills(s) 0, Pharmacy: [facility], 160, cm, 12/06/24 12:22:00 EDT, Height/Length Dosing, 100.9, kg, 12/06/24 12:22:00 EDT, Weight Dosing Current tobacco non-user 1036F Most recent diastolic blood pressure 80-89 mm Hg 3079F Systolic BP <130 mm Hg (Most Recent) 3074F 4. History of hepatitis C (Z86.19: Personal history of other infectious and parasitic diseases) Ordered: hyoscyamine, 0.25 mg = 2 tab(s), Oral, QID, PRN for spasm, # 80 tab(s), Refills(s) 0, Pharmacy: [facility], 160, cm, 12/06/24 12:22:00 EDT, Height/Length Dosing, 100.9, kg, 12/06/24 12:22:00 EDT, Weight Dosing Current tobacco non-user 1036F Most recent diastolic blood pressure 80-89 mm Hg 3079F Systolic BP <130 mm Hg (Most Recent) 3074F 5. Weight gain (R63.5: Abnormal weight gain) Ordered: hyoscyamine, 0.25 mg = 2 tab(s), Oral, QID, PRN for spasm, # 80 tab(s), Refills(s) 0, Pharmacy: [facility], 160, cm, 12/06/24 12:22:00 EDT, Height/Length Dosing, 100.9, kg, 12/06/24 12:22:00 EDT, Weight Dosing Current tobacco non-user 1036F Most recent diastolic blood pressure 80-89 mm Hg 3079F Systolic BP <130 mm Hg (Most Recent) 3074F 6. Constipation (K59.00: Constipation, unspecified) 7. Bloating (R14.0: Abdominal distension (gaseous)) Advised to use squatty potty and massage the colon Advised to eat prunes and kiwi fruit Advised to use miralax and titrate to have 1-2 BM daily Prescribed Levsin 0.125 mg every 6 hours as needed for right upper quadrant pain Gave handout about low FODMAP diet Might benefit from neuromodulator in the future Follow-up No qualifying data available Problem List/Past Medical History Ongoing Abdominal pain Anxiety Bloating Constipation Depression Fatty liver History of hepatitis C Morbid obesity NAFLD (nonalcoholic fatty liver disease) Right upper quadrant abdominal pain Weight gain Historical Hepatitis C Procedure/Surgical History Appendectomy, LEEP, Tonsillectomy. Medications clindamycin 2% vaginal cream, 1 marisa, Vaginal, Once a day (at bedtime) furosemide 40 mg Tab, 40 mg= 1 tab(s), Oral, Daily, PRN, 4 refills Levsin 0.125 mg SL Tab, 0.25 mg= 2 tab(s), Oral, QID, PRN Mounjaro 5 mg/0.5 mL subcutaneous solution, 5 mg, SubCutaneous, qWeek Multivitamins with Folate 1700 mcg DFE oral c (more content not included)...[facility] HospitalComment on above:Result Comment: Electronically Signed By: Rina GREWAL, Radha Rivera\.br\Date and Time Signed: 12/07/2511:38 EDTNM Hepatobiliary Duct System Imaging w/EFon [id number] Hepatobiliary Duct System Imaging w/EFExam Date/Time: 11/24/2024 10:31 EDT Reason for Exam: Abdominal pain Report IMPRESSION: Patent cystic and common bile ducts. No evidence of acute cholecystitis. Normal gallbladder ejection fraction. No evidence of chronic cholecystitis. NM Hepatobiliary Duct System Imaging w/EF CLINICAL HISTORY: Right-sided abdominal pain.. TECHNIQUE: 5.1 mCi Tc-99m Mebrofenin IV, followed by 60 minutes of abdominal imaging. 1.90 micrograms Kinevac (CCK) IV, followed by additional 30 minutes of imaging. RESULT: There is prompt and homogeneous uptake by the liver, which appears grossly normal in size and shape. Gallbladder activity is visualized by 20 minutes, indicating cystic duct patency. Proximal small bowel activity is noted by 40 minutes, indicating common bile duct patency. After CCK was administered there is normal emptying from the gallbladder with a calculated gallbladder ejection fraction of 87% (normal > 35%). Tech Comments: Dose: (mCi Tc99m Mebrofenin) 5.10 Kinevac Dose (in micrograms) 1.90 Ordering Provider: Radha Flynn FINAL REPORT Dictated: 11/24/2024 10:46 am Nicanor Zuñiga MD Signed (Electronic Signature): 11/24/2024 10:46 am Signed by: Nicanor Zuñiga MD Transcribed by: KELVIN Technologist: [facility] HospitalAmbulatory Visit Summaryon [id number] Visit SummaryAmbulatory Visit Summary NE ROY :1965 Visit Date:11/18/2024 Ambulatory Visit Instructions Your Diagnosis NAFLD (nonalcoholic fatty liver disease) Anxiety Depression BMI 39.0-39.9,adult Non-smoker Morbid obesity Your Care Team Attending Physician - Lily Nguyen MD Primary Care Physician - Lily Nguyen MD This Is Your Medications List multivitamin, ( Multivitamins with Folate 1700 mcg DFE oral capsule) tirzepatide (Mounjaro 5 mg/0.5 mL subcutaneous solution) Contact prescribing physician if questions or concerns Turmeric (turmeric 500 mg oral capsule) clindamycin topical (clindamycin 2% vaginal cream) ergocalciferol (Vitamin D 50,000 intl units (1.25 mg) oral capsule) furosemide (furosemide 40 mg Tab) sertraline (sertraline 50 mg Tab) Procedures Performed Appendectomy, LEEP, Tonsillectomy. Discharge Vitals Heart Rate (Peripheral) 91 Blood Pressure 104/72 Height 160 cm Height 63 in Weight 100.7 kg Weight 222.005 lb BMI 39.34 What to do next Scheduled Follow-Up Appointments Friday 9:00 AM EDT With: Where: Nuclear Medicine Friday 12:15 PM EDT With: Rina GREWAL, Radha Rivera Where: [facility] [address] [place] [phone]- Friday 12:20 PM EST With: Lily Nguyen MD Where: [facility] [address] [address]- You Need to Schedule the Following Appointments Follow Up with Lily Nguyen MD, [facility], MED When: In 6 months Where: [address] [place] [phone] [phone] Business (1) Medications What How Much When Why Instructions New multivitamin, ( Multivitamins with Folate 1700 mcg DFE oral capsule) 1 Capsules By Mouth Every day Refills: 4 Pickup at [facility] Unchanged tirzepatide (Mounjaro 5 mg/ 0.5 mL subcutaneous solution) 5 Milligram Subcutaneous Every week NAFLD (nonalcoholic fatty liver disease) BMI 39.0- 39.9,adult Pickup at [facility]28 Unchanged clindamycin topical (clindamycin 2% vaginal cream) 1 Application Vaginal Once a day (at bedtime) Contact prescribing physician if questions or concerns Unchanged ergocalciferol (Vitamin D 50,000 intl units (1.25 mg) oral capsule) 1 Capsules By Mouth Every week Vitamin D deficiency Contact prescribing physician if questions or concerns Unchanged furosemide (furosemide 40 mg Tab) 1 Tablets By Mouth Every day as needed for Edema Contact prescribing physician if questions or concerns Unchanged sertraline (sertraline 50 mg Tab) 1 Tablets By Mouth Every day Contact prescribing physician if questions or concerns Unchanged Turmeric (turmeric 500 mg oral capsule) By Mouth Every day Contact prescribing physician if questions or concerns Pharmacy Information [facility]: [address] [place], [place] [phone] Allergies No Known Allergies Problems Ongoing - Any problem that you are currently receiving treatment for. Abdominal pain Anxiety Depression Fatty liver History of hepatitis C Morbid obesity NAFLD (nonalcoholic fatty liver disease) Right upper quadrant abdominal pain Weight gain Historical - Any problem that you are no longer receiving treatment for. Hepatitis C Patient Survey You may receive a survey via text or e-mail asking about your office visit. Please share your experience with us by completing your survey. We appreciate your feedback and thank you for choosing us for your care. Patient Portal You may access all of your results and other medical record information on our secure patient portal. If you are not signed up for this yet, please contact [employer] at [phone] to get signed up today. Language Information Language assistance services are available as needed. [facility] Medicine Office/Clinic Noteon [id number] Office/Clinic NoteF[facility]Clinic Note Chief Complaint One month follow up HPI Staff One month follow up. Weight management: completed 4 weeks of Mounjaro weight last visit: 100.8 kg jon this visit: 100.7 kg Eating habits: eating more fruits and vegetables and eating smaller portion Exercise: walking and stairs Follow up for Mental Status: Most recent MICHAEL: 5 Most recent PHQ: 6 Health Maintenance: Colonoscopy: cologuard utd Mammo: utd Pap: 06/24/2024 Last Labs: 05/28/2024 History of Present Illness - The patient is a 59-year-old female presenting for a follow-up visit to manage anxiety, depression, and obesity. - Anxiety disorder and depression: Previously on sertraline 50 mg daily, taken infrequently. Advised to take daily. Olanzapine and paliperidone discontinued. - Morbid obesity: Prescribed Mounjaro 2.5 mg weekly, with no side effects reported. Weight stable at 222 pounds. - Nonalcoholic fatty liver disease (NAFLD): Right-sided abdominal pain, possibly gallstones. Scan scheduled for evaluation. - Low vitamin D: Level at 23.8, advised supplements. Discontinued multivitamin due to arm pain. - Preventative care: Negative Cologuard test on 07/01/24, normal cholesterol levels on 05/28/24. Review of Systems PHQ Score Initial Depression Screen Score: 0 SCORE Negative except as above Physical Exam Vitals & Measurements HR: 91(Peripheral) BP: 104/72 SpO2: 98% HT: 160 cm HT: 63 in WT: 100.7 kg WT: 222.005 lb BMI: 39.34 Gen: No acute distress, sitting comfortably in chair Cardio: RRR, no murmur/rubs/gallops Resp: CTAB, no wheezing/rales/rhonchi Psych: Pleasant, normal mood, normal affect Neuro: CN II-XII intact, normal gait Assessment/Plan 1. NAFLD (nonalcoholic fatty liver disease) (K76.0: Fatty (change of) liver, not elsewhere classified) mounjaro 2.5 mg working well increased to 5 mg weekly cont lifetyle modifications It is my medical opinion that this patient has tried multiple approaches to weight loss that have not been successful over the past 12 months. These include consistent low calorie diet with 1500 calorie or less per day consumption, routine activity of 150 minutes or more per week. It is ideal for this patient to have access to GLP-1 Receptor Agonist for the benefit of weight loss, insulin resistance improvement and improving NAFLD. This can greatly reduce the risk of developing Type 2 Diabetes and other comorbidities going forward. Sample of Mounjaro 2.5 mg was given and patient has noticed reduced portion sizes, decreased fatigue. Ordered: tirzepatide, 5 mg, SubCutaneous, qWeek, # 12 EA, Refills(s) 0, Pharmacy: [facility], 160, cm, 11/18/24 12:39:00 EDT, Height/Length Dosing, 100.7, kg, 11/18/24 12:39:00 EDT, Weight Dosing 2. Anxiety (F41.9: Anxiety disorder, unspecified) MICHAEL: 5 cont sertraline 50 mg patient has been taking it more frequently from 3-4x a month to 3-4x a week 3. Depression ([id number]: Depression) PHQ: 6 cont sertraline 50 mg patient has been taking it more frequently from 3-4x a month to 3-4x a week 4. BMI 39.0-39.9,adult (Z68.39: Body mass index [BMI] 39.0-39.9, adult) The standard range for ages 18 and older is >=18.5 and < 25 kg/m2. Your BMI today was above this range, this falls in the overweight to obese category and there are medical benefits to weight loss. We can offer counselling, referral, and/or medical support in addressing this problem. Your BMIand weight management will be followed at subsequent visits. Ordered: tirzepatide, 5 mg, SubCutaneous, qWeek, # 12 EA, Refills(s) 0, Pharmacy: [id number], 160, cm, 11/18/24 12:39:00 EDT, Height/Length Dosing, 100.7, kg, 11/18/24 12:39:00 EDT, Weight Dosing 5. Non-smoker (Z78.9: Other specified health status) stable 6. Morbid obesity (E66.01: Morbid (severe) obesity due to excess calories) increase whole foods, decrease processed foods exercise at least 2.5 hours weekly Orders: multivitamin with minerals, See Instructions, 90 caplet(s), Refill(s) 4, Take 1 capsule daily, [facility] [id number], 160, cm, 10/20/24 11:19:00 EDT, Height/Length Dosing, 100.8, kg, 10/20/24 11:19:00 EDT, Weight Dosing multivitamin, , 1 cap(s), Oral, Daily, 100 cap(s), Refill(s) 4, [facility] [id number], 160,cm, 11/18/24 12:39:00 EDT, Height/Length Dosing, 100.7, kg, 11/18/24 12:39:00 EDT, Weight Dosing Portions of this record may have been created with voice recognition artificial intelligence software, specifically [employer]. Substitutions may have occurred due to the inherent limitations of voice recognition and artificial intelligence software. Follow-up With When Contact Information Lily Nguyen MD, FAM, MED In [address] [place] [phone] Business (1) Additional Instructions: Problem List/Past Medical History Ongoing Abdominal pain Anxiety Depression Fatty liver History of hepatitis C Morbid obesity NAFLD (nonalco (more content not included)...[facility] Comment on above:Result Comment: Electronically Signed By: Lily Nguyen MD\.br\Date and Time Signed: 11/18/2513:20 EDTAmbulatory Visit Summaryon [id number] Visit SummaryAmbulatory Visit Summary NE ROY :1965 Visit Date:10/20/2024 Ambulatory Visit Instructions Your Diagnosis Encounter to establish care with new doctor NAFLD (nonalcoholic fatty liver disease) Anxiety Depression BMI 39.0-39.9,adult Morbid obesity due to excess calories Nonsmoker Vitamin D deficiency Your Care Team Attending Physician - Lily Nguyen MD Primary Care Physician - Lily Nguyen MD This Is Your Medications List ergocalciferol (Vitamin D 50,000 intl units (1.25 mg) oral capsule) furosemide (furosemide 40 mg Tab) multivitamin with minerals (Celebrate Multivitamin oral capsule) sertraline (sertraline 50 mg Tab) tirzepatide (Mounjaro 5 mg/0.5 mL subcutaneous solution) Contact prescribing physician if questions or concerns Turmeric (turmeric 500 mg oral capsule) clindamycin topical (clindamycin 2% vaginal cream) [Image Removed: STOP]Stop taking these medications olanzapine (olanzapine 5 mg Tab) paliperidone (paliperidone 3 mg oral tablet, extended release) Procedures Performed Appendectomy, LEEP, Tonsillectomy. Discharge Vitals Heart Rate (Peripheral) 88 Blood Pressure 112/70 Height 160 cm Height 63 in Weight 100.8 kg Weight 222.226 lb BMI 39.38 What to do next Scheduled Follow-Up Appointments 2024 12:20 PM EDT With: Lily Nguyen MD Where: [facility] [address] [address]- Friday 9:00 AM EDT With: Where: Nuclear Medicine Friday 12:15 PM EDT With: Rina GREWAL, Radha Rivera Where: [facility] [address] [place] [phone]- Medications What How Much When Why Instructions New multivitamin with minerals (Celebrate Multivitamin oral capsule) See instructions Refills: 4 Take 1 capsule daily Pickup at [facility] [id number] New tirzepatide (Mounjaro 5 mg/ 0.5 mL subcutaneous solution) 5 Milligram Subcutaneous Every week NAFLD (nonalcoholic fatty liver disease) BMI 39.0- 39.9,adult Pickup at [facility] [id number] Changed ergocalciferol (Vitamin D 50,000 intl units (1.25 mg) oral capsule) 1 Capsules By Mouth Every week Vitamin D deficiency Pickup at [facility] [id number] Changed furosemide (furosemide 40 mg Tab) 1 Tablets By Mouth Every day as needed for Edema Pickup at [facility] [id number] Changed sertraline (sertraline 50 mg Tab) 1 Tablets By Mouth Every day Pickup at [facility] [id number] Unchanged clindamycin topical (clindamycin 2% vaginal cream) 1 Application Vaginal Once a day (at bedtime) Contact prescribing physician if questions or concerns Unchanged Turmeric (turmeric 500 mg oral capsule) By Mouth Every day Contact prescribing physician if questions or concerns Pharmacy Information [facility] [id number]: [address] [place], [place] [id number] [phone] What How Much When Comments Stop Taking olanzapine (olanzapine 5 mg Tab) 1 Tablets By Mouth Every day Stop Taking paliperidone (paliperidone 3 mg oral tablet, extended release) 2 Tablets By Mouth Once a day (in the morning) Allergies No Known Allergies Problems Ongoing - Any problem that you are currently receiving treatment for. Abdominal pain Anxiety Depression Encounter to establish care with new doctor Fatty liver History of hepatitis C NAFLD (nonalcoholic fatty liver disease) Right upper quadrant abdominal pain Weight gain Historical - Any problem that you are no longer receiving treatment for. Hepatitis C Patient Survey You may receive a survey via text or e-mail asking about your office visit. Please share your experience with us by completing your survey. We appreciate your feedback and thank you for choosing us for your care. Patient Portal You may access all of your results and other medical record information on our secure patient portal. If you are not signed up for this yet, please contact [employer] at [phone] to get signed up today. Language Information Language assistance services are available as needed. [facility] Medicine Office/Clinic Noteon [id number] Chief Complaint establish care HPI Staff Establish Care: History: Last provider: [facility] in [place] Any recent labs: none within the past 6 months Health Maintenance UTD: Colonoscopy: Cologuard done in August 2024 Mammogram: done in 2024 Pelvic/Pap: September 2024 Acute: Current issues/complaints: Was referred from [facility] to see about getting on a GLP-1 medication Refills: furosemide, sertraline, paliperidone, olanzapine History of Present Illness - The patient is a 59-year-old female presenting to establish care with a new primary care provider. - Nonalcoholic fatty liver disease: The patient has been advised to start GLP-1 agonists for weightmanagement due to nonalcoholic fatty liver disease. - Anxiety: The patient has been taking sertraline on an as-needed basis for anxiety, approximately three to four times a month. - Depression: The patient was previously prescribed olanzapine, sertraline, and paliperidone by a psychiatrist at [facility]. - Vitamin D deficiency: The patient has been on vitamin D 50,000 units for years, originally prescribed by Dr. Simmons. - Morbid obesity due to excess calories: The patient was previously on Adipex for weight loss and is now considering GLP-1 agonists. Review of Systems PHQ Score Initial Depression Screen Score: 0 SCORE Negative except as above Physical Exam Vitals & Measurements HR: 88(Peripheral) BP: 112/70 SpO2: 99% HT: 63 in HT: 160 cm WT: 222.226 lb WT: 100.8 kg BMI: 39.38 Gen: No acute distress, sitting comfortably in chair Cardio: RRR, no murmur/rubs/gallops Resp: CTAB, no wheezing/rales/rhonchi Psych: Pleasant, normal mood, normal affect Neuro: CN II-XII intact, normal gait Assessment/Plan 1. Encounter to establish care with new doctor (Z76.89: Persons encountering health services in other specified circumstances) vit d level ordered will trial mounjaro for NAFLD 2. NAFLD (nonalcoholic fatty liver disease) (K76.0: Fatty (change of) liver, not elsewhere classified) sees [facility], has HIDA scan scheduled GI recommends patient be on GLP1 medication for the NAFLD will trial mounjaro 2.5 mg weekly mounjaro 5 mg weekly sent to pharmacy mounjaro 2.5 mg weekly x1 sample box given today Ordered: tirzepatide, 5 mg, SubCutaneous, qWeek, # 12 EA, Refills(s) 0, Pharmacy: [facility] [id number], 160, cm, 10/20/24 11:19:00 EDT, Height/Length Dosing, 100.8, kg, 10/20/24 11:19:00 EDT, Weight Dosing 3. Anxiety (F41.9: Anxiety disorder, unspecified) MICHAEL: 4 cont sertraline 50 mg daily patient only taking it 3-4x a month currently, discussed taking it daily patient also taking olanzapine and paliperidone 3-4x a month, discontinued these medications declines prn meds at this time 4. Depression ([id number]: Depression) MICHAEL: 4 cont sertraline 50 mg daily patient only taking it 3-4x a month currently, discussed taking it daily patient also taking olanzapine and paliperidone 3-4x a month, discontinued these medications declines prn meds at this time 5. BMI 39.0-39.9,adult (Z68.39: Body mass index [BMI] 39.0-39.9, adult) The standard range for ages 18 and older is >=18.5 and < 25 kg/m2. Your BMI today was above this range, this falls in the overweight to obese category and there are medical benefits to weight loss. We can offer counselling, referral, and/or medical support in addressing this problem. Your BMIand weight management will be followed at subsequent visits. Ordered: tirzepatide, 5 mg, SubCutaneous, qWeek, # 12 EA, Refills(s) 0, Pharmacy: [facility] [id number], 160, cm, 10/20/24 11:19:00 EDT, Height/Length Dosing, 100.8, kg, 10/20/24 11:19:00 EDT, Weight Dosing 1126F Pain severity quantified; no pain present Body Mass Index (BMI) documented 3008F Current tobacco non-user 1036F Depression Screening Negative 3352F Medication list documented in medical record 1159F 6. Morbid obesity due to excess calories (E66.01: Morbid (severe) obesity due to excess calories) increase whole foods, decrease processed foods exercise at least 2.5 hours weekly Ordered: 1126F Pain severity quantified; no pain present Body Mass Index (BMI) documented 3008F Current tobacco non-user 1036F Depression Screening Negative 3352F Medication list documented in medical record 1159F 7. Nonsmoker (Z78.9: Other specified health status) stable Ordered: 1126F Pain severity quantified; no pain present Body Mass Index (BMI) documented 3008F Current tobacco non-user 1036F Depression Screening Negative 3352F Medication list documented in medical record 1159F Vitamin D deficiency (E55.9: Vitamin D deficiency, unspecified) has been on vit D 50,000 units weekly for years vit D level ordered Ordered: ergocalciferol, 50,000 International_Unit = 1 cap(s), Oral, qWeek, # 12 cap(s), Refills(s) 4, Pharmacy: [facility] [id number], 160, cm, 10/20/24 11:19:00 EDT, Height/Kameron (more content not included)...[facility] Comment on above:Result Comment: Electronically Signed By: Lily Nguyen MD\.br\Date and Time Signed: 10/20/2512:58 EDTVitamin D 25 Hydroxyon 10-20-2024 Vitamin D 25 Pwcgfay40.8 ng/mLLow30.0-100.0[facility] HospitalComment on above:Performed By: #### [id number] #### [facility] [address], [place] [address]Wkittgynad Visit Summaryon [id number] Visit Summary Ambulatory Visit Summary NE ROY Megha :1965 Visit Date:10/11/2024 Ambulatory Visit Instructions Your Diagnosis Fatty liver Right upper quadrant abdominal pain History of hepatitis C Weight gain Your Care Team Attending Physician - Rina GREWAL, Radha Rivera Primary Care Physician - ONESIMO SINHA CNP This Is Your Medications List Contact prescribing physician if questions or concerns Turmeric (turmeric 500 mg oral capsule) clindamycin topical (clindamycin 2% vaginal cream) ergocalciferol (Vitamin D) furosemide Procedures Performed Appendectomy, LEEP, Tonsillectomy. Discharge Vitals Heart Rate (Peripheral) 76 Respiratory Rate 14 Blood Pressure 107/76 Height 160 cm Height 63 in Weight 99 kg Weight 218.257 lb BMI 38.67 What to do next Scheduled Follow-Up Appointments Friday 12:15 PM EDT With: Rina GREWAL, Radha Rivera Where: [facility] [address] [facility] [address] [address]- You Need to Complete the Following NM Hepatobiliary Duct System Imaging w/EF, 09/12/24, Routine, Order for Future Visit, Transport Mode: Ambulatory, Reason: Abdominal pain, Fatty liver History of hepatitis C Abdominal pain Rightupper quadrant abdominal pain, No, pp_set_radiology_subspecialty, [facility] Someone Will Contact You Regarding These Appointments [facility] Ambulatory Referral, Other Referral, 10/11/24 12:52:00 EDT, Fatty liver Medications What How Much When Instructions Unchanged clindamycin topical (clindamycin 2% vaginal cream) 1 Application Vaginal Once a day (at bedtime) Contact prescribing physician if questions or concerns Unchanged ergocalciferol (Vitamin D) By Mouth Every week Contact prescribing physician if questionsor concerns Unchanged furosemide Contact prescribing physician if questions or concerns Unchanged Turmeric (turmeric 500 mg oral capsule) By Mouth Every day Contact prescribing physician if questions or concerns Allergies No Known Allergies Problems Ongoing - Any problem that you are currently receiving treatment for. Abdominal pain Anxiety Depression Fatty liver History of hepatitis C Right upper quadrant abdominal pain Weight gain Historical - Any problem that you are no longer receiving treatment for. Hepatitis C Patient Survey You may receive a survey via text or e-mail asking about your office visit. Please share your experience with us by completing your survey. We appreciate your feedback and thank you for choosing us for your care. Patient Portal You may access all of your results and other medical record information on our secure patient portal. If you are not signed up for this yet, please contact [employer] at [phone] to get signed up today. Language Information Language assistance services are available as needed. [facility] [id number] Office/Clinic NoteGastroenterology Office/Clinic Note Chief Complaint 3 month follow up, abdominal pain and weight gain HPI Staff EST, 58 year old female who presents today for a 3 month follow up. -HIDA scan not completed weight gain, even after taking adipiex. still having abd pain. Last visit w/ Dr Flynn 06/02/24 History of Present illness PT with pain in the right side and fatty liver eating lots of sugar makes it worse - now eating more vegetables and turmeric treated for HCV in the past pt is gaining weight - trying to manage on her own trying to drink more coffee Assessment/Plan 1. Fatty liver (K76.0: Fatty (change of) liver, not elsewhere classified) 2. History of hepatitis C (Z86.19: Personal history of other infectious and parasitic diseases) 3. Abdominal pain (R10.9: Unspecified abdominal pain) 4. Right upper quadrant abdominal pain (R10.11: Right upper quadrant pain) Schedule HIDA scan to evaluate right upper quadrant Advised to lose 10% of current weight Advised to drink 2 to 3 cups of medium roast coffee Referred to the weight loss clinic at [facility] Advised to continue to work with PCP on prescribing anti-GLP 1 for weight loss US RUQ 03/25/24 IMPRESSION: Echogenic liver suggesting hepatic steatosis. FIbroscan 12/17/17 CAP- 287, E- 3.9 F0-F1, moderate steatosis History of Hepatitis C. Treated by Dr Leyva. Labs 03/23/24 WBC: 6.7 RBC: 4.61 HEMOGLOBIN: 14.4 HEMATOCRIT: 42.6 MCV: 93 MCH: 31.2 MCHC: 33.7 RDW: 13.4 PLATELET COUNT: 215 MPV: 8.1 % NEUTRO: 45.6 % LYMPHO: 42.7 % MONO: 7.1 % EOSINO: 3.9 % BASO: 0.7 ABS NEUTRO: 3.0 ABS LYMPHO: 2.8 ABS MONO: 0.5 ABS EOSINO: 0.3 ABS BASO: 0.0 LIPASE: 33 AMYLASE: 190 High ALKE PHOS: 67 AST: 18 ALT: 10 BILIRUBIN, TOTAL: 0.3 BILIRUBIN, DIRECT: 0.1 ALBUMIN: 3.9 TOTAL PROTEIN: 7.4 HEPATITIS B SURF AG: Nonreactive HEPATITIS B CORE IGM: Nonreactive HEPATITIS A IGM: Nonreactive ANTI HCV W/PCR REFLX: Reactive Abnormal HCV Viral Load: Not detected HCV Log Value: Not detected History of Present Illness I have reviewed HPI staff note, most recent labs and imaging, I agree with the above documentation with the following additions/exceptions : pt still with pain in the right side with bending and with eating sweets pain lasts for 15-20 minutes severe Review of Systems PHQ Score Initial Depression Screen Score: 0 SCORE All systems reviewed, negative except as mentioned above Physical Exam Vitals & Measurements HR: 76(Peripheral) RR: 14 BP: 107/76 HT: 160 cm HT: 63 in WT: 218.257 lb WT: 99 kg BMI: 38.67 General: alert, no acute distress HEENT: atraumatic normocephalic Cardiovascular: regular rate and rhythm, normal peripheral perfusion Respiratory: Lungs CTA, respirations non labored Extremities: no deformity, no trauma Abdomen: Benign, soft, tender nondistended Assessment/Plan 1. Fatty liver (K76.0: Fatty (change of) liver, not elsewhere classified) 2. Right upper quadrant abdominal pain (R10.11: Right upper quadrant pain) 3. History of hepatitis C (Z86.19: Personal history of other infectious and parasitic diseases) 4. Weight gain (R63.5: Abnormal weight gain) Patient continues to gain weight. She tried adipiex which did not help. Will refer to weight loss clinic Obtain HIDA scan Advised to continue to work on losing weight and eating healthy Follow-up No qualifying data available Problem List/Past Medical History Ongoing Abdominal pain Anxiety Depression Fatty liver History of hepatitis C Right upper quadrant abdominal pain Weight gain Historical Hepatitis C Procedure/Surgical History Appendectomy, LEEP, Tonsillectomy. Medications clindamycin 2% vaginal cream, 1 marisa, Vaginal, Once a day (at bedtime) furosemide turmeric 500 mg oral capsule, Oral, Daily Vitamin D, Oral, qWeek Allergies No Known Allergies Social History Tobacco Never (less than 100 in lifetime) Tobacco Use:., 10/11/2024 Never (less than 100 in lifetime) Tobacco Use:. Never Smokeless Tobacco Use:., 06/02/2024 Family History Primary malignant neoplasm of female breast: Mother.[facility]:Result Comment: Electronically Signed By: Rina GREWAL, Radha Rivera\.br\Date and Time Signed: 10/12/2511:53 EDTProvider Letteron [phone] LetterProvider Letter July 28, [address] [place] [id number] : 1965 Dear Ne, We have been trying to reach you with no success. Please call our office at [phone] in regardsto your referral. Thank you for your prompt attention to this matter. Sincerely, [facility] CampusAmbulatory Visit Summaryon [id number] Visit SummaryAmbulatory Visit Summary IVORYARLYN [place] :1965 Visit Date:06/02/2024 Ambulatory Visit Instructions Your Diagnosis Fatty liver History of hepatitis C Abdominal pain Right upper quadrant abdominal pain Your Care Team Attending Physician - Radha Flynn MD Primary Care Physician - ONESIMO SINHA CNP This Is Your Medications List Contact prescribing physician if questions or concerns Non-Formulary Medication (Beet Root 1,000mg) Turmeric (turmeric 500 mg oral capsule) clindamycin topical (clindamycin 2% vaginal cream) cyanocobalamin (Vitamin B12) ergocalciferol (Vitamin D) furosemide olanzapine (olanzapine 5 mg Tab) sertraline (sertraline 50 mg Tab) Procedures Performed Appendectomy, LEEP, Tonsillectomy. Discharge Vitals Heart Rate (Peripheral) 81 Respiratory Rate 14 Blood Pressure 124/77 Height 160 cm Height 63 in Weight 96 kg Weight 211.644 lb BMI 37.5 What to do next You Need to Complete the Following NM Hepatobiliary Duct System Imaging w/EF, 06/02/24, Routine, Order for Future Visit, Transport Mode: Ambulatory, Reason: Abdominal pain, Fatty liver History of hepatitis C Abdominal pain Rightupper quadrant abdominal pain, No, pp_set_radiology_subspecialty, [facility] Medications What How Much When Instructions Unchanged clindamycin topical (clindamycin 2% vaginal cream) 1 Application Vaginal Once a day (at bedtime) Contact prescribing physician if questions or concerns Unchanged cyanocobalamin (Vitamin B12) Contact prescribing physician if questions or concerns Unchanged ergocalciferol (Vitamin D) By Mouth Every week Contact prescribing physician if questionsor concerns Unchanged furosemide Contact prescribing physician if questions or concerns Unchanged Non-Formulary Medication (Beet Root 1,000mg) See instructions Contact prescribing physician if questions or concerns Unchanged olanzapine (olanzapine 5 mg Tab) By Mouth Every day Contact prescribing physician if questions or concerns Unchanged sertraline (sertraline 50 mg Tab) By Mouth Every day Contact prescribing physician if questions or concerns Unchanged Turmeric (turmeric 500 mg oral capsule) By Mouth Every day Contact prescribing physician if questions or concerns Allergies No Known Allergies Problems Ongoing - Any problem that you are currently receiving treatment for. Abdominal pain Anxiety Depression Fatty liver History of hepatitis C Right upper quadrant abdominal pain Historical - Any problem that you are no longer receiving treatment for. Hepatitis C Patient Survey You may receive a survey via text or e-mail asking about your office visit. Please share your experience with us by completing your survey. We appreciate your feedback and thank you for choosing us for your care. [facility]/Clinic Noteon [id number] Office/Clinic NoteGastroenterology Office/Clinic Note Chief Complaint A digna ref for fatty liver and right sided abdominal pain HPI Staff New- Patient is a(n) 58 year old female who was referred by Megha Richardson for abdominal pain and fatty liver. Abdominal pain, right sided and diarrhea. been trying beet root supplement and turmeric. has been changing eating habits, and she notices that it is helping with her flare ups. Patient states she really wants a treatment plan and is willing to do whatever she needs to do. History of Hepatitis C. Treated by Dr Leyva. History of fatty liver. Previous EGD/colonoscopy - She's done the cologuard. Denies blood thinners. Denies GLP-1 agonists. US RUQ 03/25/24 IMPRESSION: Echogenic liver suggesting hepatic steatosis. FIbroscan 12/17/17 CAP- 287, E- 3.9 F0-F1, moderate steatosis Labs 03/23/24 WBC: 6.7 RBC: 4.61 HEMOGLOBIN: 14.4 HEMATOCRIT: 42.6 MCV: 93 MCH: 31.2 MCHC: 33.7 RDW: 13.4 PLATELET COUNT: 215 MPV: 8.1 % NEUTRO: 45.6 % LYMPHO: 42.7 % MONO: 7.1 % EOSINO: 3.9 % BASO: 0.7 ABS NEUTRO: 3.0 ABS LYMPHO: 2.8 ABS MONO: 0.5 ABS EOSINO: 0.3 ABS BASO: 0.0 LIPASE: 33 AMYLASE: 190 High ALKE PHOS: 67 AST: 18 ALT: 10 BILIRUBIN, TOTAL: 0.3 BILIRUBIN, DIRECT: 0.1 ALBUMIN: 3.9 TOTAL PROTEIN: 7.4 HEPATITIS B SURF AG: Nonreactive HEPATITIS B CORE IGM: Nonreactive HEPATITIS A IGM: Nonreactive ANTI HCV W/PCR REFLX: Reactive Abnormal HCV Viral Load: Not detected HCV Log Value: Not detected Review of Systems PHQ Score Initial Depression Screen Score: 0 SCORE All systems reviewed, negative except as mentioned above Physical Exam Vitals & Measurements HR: 81(Peripheral) RR: 14 BP: 124/77 HT: 63 in HT: 160 cm WT: 96 kg WT: 211.644 lb BMI: 37.5 I have reviewed HPI staff note, most recent labs and imaging, I agree with the above documentation with the following additions/exceptions : PT with pain in the right side and fatty liver eating lots of sugar makes it worse - now eating more vegetables and turmeric treated for HCV in the past pt is gaining weight - trying to manage on her own trying to drink more coffee General: alert, no acute distress HEENT: atraumatic normocephalic Cardiovascular: regular rate and rhythm, normal peripheral perfusion Respiratory: Lungs CTA, respirations non labored Extremities: no deformity, no trauma Abdomen: Benign, soft, tender nondistended Assessment/Plan 1. Fatty liver (K76.0: Fatty (change of) liver, not elsewhere classified) Ordered: OK Hepatobiliary Duct System Imaging w/EF 2. History of hepatitis C (Z86.19: Personal history of other infectious and parasitic diseases) Ordered: [place] Hepatobiliary Duct System Imaging w/EF 3. Abdominal pain (R10.9: Unspecified abdominal pain) Ordered: OK Hepatobiliary Duct System Imaging w/EF 4. Right upper quadrant abdominal pain (R10.11: Right upper quadrant pain) Ordered: OK Hepatobiliary Duct System Imaging w/EF Schedule HIDA scan to evaluate right upper quadrant Advised to lose 10% of current weight Advised to drink 2 to 3 cups of medium roast coffee Referred to the weight loss clinic at [facility] Advised to continue to work with PCP on prescribing anti-GLP 1 for weight loss Follow-up No qualifying data available Problem List/Past Medical History Ongoing Abdominal pain Anxiety Depression Fatty liver History of hepatitis C Right upper quadrant abdominal pain Historical Hepatitis C Procedure/Surgical History Appendectomy, LEEP, Tonsillectomy. Medications Beet Root 1,000mg, See Instructions clindamycin 2% vaginal cream, 1 marisa, Vaginal, Once a day (at bedtime) furosemide olanzapine 5 mg Tab, Oral, Daily sertraline 50 mg Tab, Oral, Daily turmeric 500 mg oral capsule, Oral, Daily Vitamin B12 Vitamin D, Oral, qWeek Allergies No Known Allergies Social History Tobacco Never (less than 100 in lifetime) Tobacco Use:. Never Smokeless Tobacco Use:., 06/02/2024 Family History Primary malignant neoplasm of female breast: Mother.[facility] Mansfield HospitalComment on above:Result Comment: Electronically Signed By: Rina GREWAL, Radha Rivera\.br\Date and Time Signed: 06/02/2512:29 ESTProvider Letteron [phone] LetterProvider Letter May 06, [address] [place] [id number] : 1965 Dear Ne, We have been trying to reach you with no success regarding a referral from [facility]. It is important that you return our call upon receiving this letter. Also, at the time of your call, please provide us with your current information. Thank you for your prompt attention to this matter. Sincerely, Anthony Ramirez [facility] [phone] Unable to contact letter came back to office stating incorrect address unable to forward.[facility] HospitalACUTE HEPATITIS PANELon 31-52-5836VWID HCV W/PCR REFLXReactiveAbnormalNRCTProMedica Anaheim General HospitalComment on above: Result Comment: Supplemental testing for HCV RNA by PCR has been ordered per CDC recommendations. Biqbhw-kp-aoxtmo ratio is >=1.00.Performed By: #### CBCA, 3040-3, 1798-8, LIVR #### [facility] ([id number]) [address] [place] [address] #### SANDRA, 31417-5 #### [facility] ([id number]) [address] [place] [address], [address] [place] [address]MGWZIBLUP A IGMNon-ReactiveNormalUniversity Hospitals Cleveland [facility] Comment on above:Performed By: #### JOSE, 3039-3, 1797-11, LIVR #### [facility] ([id number]) [address] [place] [address] #### SANDRA, 17030-0 #### [facility] ([id number]) [address] [place] [address], [address] [place] [address] 62018ICFAZTTLO B CORE IGMNon-ReactiveNormSelect Medical Specialty Hospital - CincinnatiComment on above:Performed By: #### JOSE, 3039-3, 1797-11, LIVR #### [facility] ([id number]) [address] [place] [address] #### SANDRA, 26298-1 #### [facility] ([id number]) [address] [place] [address], [address] [place] [address] 36691NPBNYSSPK B SURF AGNon-ReactiveNoMcCullough-Hyde Memorial HospitalComment on above:Performed By: #### JOSE, 3039-3, 1797-11, LIVR #### [facility] ([id number]) [address] [place] [address] 21603 #### SANDRA, 17415-2 #### [facility] ([id number]) [address] [place] [address], [address] [place], [place] [address]ZDLJDVJwt 34-20-5672Aruhzom [Catalytic activity/Vol]190 U/LHigh 28-100Hol[facility] Center – JacksonComment on above:Performed By: #### JOSE, 3040- 3, 1797-11, LIVR #### [facility] ([id number]) [address] [place] [address] 47167 #### AHCody, 64667-9 #### [facility] ([id number]) [address], [address] [place], [place] [address]NLN AND AUTO DIFFon 02-16-5158DACDPQQG BASOPHIL0.0 X10E9/LNormal 0.0-0.2ProMedica Anaheim General HospitalComment on above:Performed By: #### CBCA, 0- 3, 1797-11, LIVR #### [facility] ([id number]) [address] [place] [address] 35358 #### SANDRA, 83098-6 #### [facility] ([id number]) [address], [address] [place], [place] [address]DNZRGZSU NEUTROPHIL3.0 X10E9/LNormal1.5-6.6ProHunt Regional Medical Center At GreenvilleComment on above:Performed By: #### CBCA, 0-3, 1797-11, LIVR #### [facility] ([id number]) [address] [place] [address]642 #### SANDRA, 52883-4 #### [facility] ([id number]) [address], [address] [place], [place] [address]Guafrnfip/100 WBC (Bld)0.7 %NormalHolzer Medical Center – Jackson Comment on above:Performed By: #### CBCA, 3040-3, 8, LIVR #### [facility] ([id number]) [address] [place] [address] 92491 #### AHP, 72728-7 #### [facility] ([id number]) [address], [address] [place], [place] [address]Ubqxndtcqzi (Bld) [#/Vol]0.3 10*3/uLNormal0.0-0.4ProHunt Regional Medical Center At GreenvilleComment on above:Performed By: #### JOSE, 3039-3, 1797-11, LIVR #### [facility] ([id number]) [address] [place] [address] 28337 #### SANDRA, #### [facility] ([id number]) [address] [facility], [address] [place], [place] [address]Asmmepfdxux/100 WBC (Bld)3.9 %NormalProHunt Regional Medical Center At Greenville Comment on above:Performed By: #### JOSE, 3, 1797-11, LIVR #### [facility] ([id number]) [address] [place] [address] 72033 #### SANDRA, #### [facility] ([id number]) [address] [place] [address], [address] [place], [place] [address]Kxkqzyvvquh distribution width (RBC) [Ratio]13.4 %Normal 11.5-15.0ProHunt Regional Medical Center At GreenvilleComment on above:Performed By: #### JOSE, 3, 1797-11, LIVR #### [facility] ([id number]) [address] [place] [address] 93351 #### SANDRA, #### [facility] ([id number]) [address] [facility], [address] [place], [place] [address]Jmolszwjhl (Bld) [Volume fraction]42.6 %Ctpfkx74-87ZflSnrvaqHunt Regional Medical Center At GreenvilleComment on above:Performed By: #### JOSE, 3039-3, 1797-11, LIVR #### [facility] ([id number]) [address] [place] [address] 81925 #### SANDRA, #### [facility] ([id number]) [address], [address] [place], [place] [address]Ndnagpeqnl (Bld) [Mass/Vol]14.4 g/qSCwbvxg69.7-15.5POhio State University Wexner Medical CenterComment on above:Performed By: #### CBCMegha, 0-3, 1797-11, LIVR #### [facility] ([id number]) [address] [place] [address] 36453 #### AHP, 47682-5 #### [facility] ([id number]) [address], [address] [place], [place] [address]Ifzfjzanmys (Bld) [#/Vol]2.8 10*3/uLNormal1.0-3.5POhio State University Wexner Medical CenterComment on above:Performed By: #### CBCMegha, 3039-3, 1797-11, LIVR #### [facility] ([id number]) [address] [place] [address] 10294 #### AHP, 74971-3 #### [facility] ([id number]) [address], [address] [place], [place] [address]Pfdvplaccfc/100 WBC (Bld)42.7 %NormalProHunt Regional Medical Center At Greenville Comment on above:Performed By: #### CBCMegha, 0-3, 1797-11, LIVR #### [facility] ([id number]) [address] [place] [address] 45514 #### AHP, 00370-2 #### [facility] ([id number]) [address], [address] [place], [place] [address]AQS (RBC) [Entitic mass]31.2 asYpvezp57-48UppXwyfnfHunt Regional Medical Center At GreenvilleComment on above:Performed By: #### CBCA, 0-3, 1797-11, LIVR #### [facility] ([id number]) [address] [place] [address] 55982 #### AHP, 32030-8 #### [facility] ([id number]) [address], [address] [place], [place] [address]RGJV (RBC) [Mass/Vol]33.7 g/cVVsxuzs17-47VpqWhzrnbHolzer Medical Center – JacksonComment on above:Performed By: #### CBCMegha, 0-3, 1797-11, LIVR #### [facility] ([id number]) [address] [place] [address] 67998 #### SANDRA, 17333-3 #### [facility] ([id number]) [address], [address] [place], [place] [address]VDO (RBC) [Entitic vol]93 tXIcrmnp75-498MuzNhfcea Fremont HospitalComment on above:Performed By: #### CBCMegha, 0-3, 8, LIVR #### [facility] ([id number]) [address] [place] [address] 61413 #### SANDRA, #### [facility] ([id number]) [address], [address] [place], [place] [address]Qflvhpqvs (Bld) [#/Vol]0.5 10*3/uLNormal0-0.9Hol[facility] Medical Center – JacksonComment on above:Performed By: #### CBCA, 3040-3, 8, LIVR #### [facility] ([id number]) [address] [place] [address] 90633 #### SANDRA, 11824-5 #### [facility] ([id number]) [address], [address] [place], [place] [address]Ipchsfahd/100 WBC (Bld)7.1 %NormalProHunt Regional Medical Center At Greenville Comment on above:Performed By: #### CBCA, 3039-3, 8, LIVR #### [facility] ([id number]) [address] [place] [address] 12170 #### AHP, 55258-3 #### [facility] ([id number]) [address], [address] [place], [place] [address]Zvlvlgdptpo/100 WBC (Bld)45.6 %NormalProHunt Regional Medical Center At Greenville Comment on above:Performed By: #### CBCA, 3040-3, 8, LIVR #### [facility] ([id number]) [address] [place] [address] 24521 #### SANDRA, 18369-8 #### [facility] ([id number]) [address], [address] [place], [place] [address]Fkqspkps mean volume (Bld) [Entitic vol]8.1 fLNormal7-12 [facility] General HospitalComment on above:Performed By: #### CBCA, 3040-3, 8, LIVR #### [facility] ([id number]) [address] [place] [address] 90725 #### SANDRA, 74553-9 #### [facility] ([id number]) [address], [address] [place], [place] [address]Usngmexlt (Bld) [#/Vol]215 10*3/lDDlatay707-513TijNmukrj Fremont HospitalComment on above:Performed By: #### CBCA, 3040-3, 8, LIVR #### [facility] ([id number]) [address] [place] [address] 71237 #### AHP, 18672-6 #### [facility] ([id number]) [address], [address] [place], [place] [address]ZAP COUNT4.61 X10E12/LNormal3.80-5.20[facility] Comment on above:Performed By: #### JOSE, 3039-3, 1797-11, LIVR #### [facility] ([id number]) [address] [place] [address] 12397 #### SANDRA, 86969-1 #### [facility] ([id number]) [address] [facility], [address] [place], [place] [address]HPC (Bld) [#/Vol]6.7 10*3/uLNormal4.0-11.0Hol[facility] Medical Center – JacksonComment on above:Performed By: #### JOSE, 3039-06, 1797-11, LIVR #### [facility] ([id number]) [address] [place] [address] 08742 #### SANDRA, 78244-8 #### [facility] ([id number]) [address] [facility], [address] [place], [place] [address]KRW RNA ARNOLDO+probe Qnon 41-00-8619PHL Log ValueNot detectedNormal [facility] Medina HospitalComment on above:Result Comment: NOTE The quantification range of this assay is 15 to 100,000,000 IU/mL (1.18 log to 8.00 log IU/mL). Testing was performed using Apryl HCV PCR ([employer] with Apryl 5800 System.Performed By: #### JOSE, 3, 1797-11, LIVR #### [facility] ([id number]) [address] [place] [address] 01781 #### SANDRA, 42382-9 #### [facility] ([id number]) [address] [facility], [address] [place], [place] [address]OXI Viral LoadNot detectedNormalNDGrant Hospital Comment on above:Performed By: #### JOSE, 3, 1797-11, LIVR #### [facility] ([id number]) [address] [place] [address] 95417 #### SANDRA, 96464-2 #### [facility] ([id number]) [address], [address] [place] [address]IGVUZEhq 93-08-7927Iysoia [Catalytic activity/Vol]33 U/LNormal 17-40ProHunt Regional Medical Center At GreenvilleComment on above:Performed By: #### JOSE, 3040-3, 1797-11, LIVR #### [facility] ([id number]) [address] [place] [address] 57121 #### SANDRA, 73600-0 #### [facility] ([id number]) [address], [address] [place] [address]ISRNH PANELon 86-90-6651Ggjplja [Mass/Vol]3.9 g/dLNormal3.2-5.3 [facility] HospitalComment on above:Performed By: #### JOSE, 3040-3, 1797-11, LIVR #### [facility] ([id number]) [address] [place] [address] 59871 #### SANDRA, 76707-9 #### [facility] ([id number]) [address], [address] [place] [address]HZP [Catalytic activity/Vol]67 U/ONftgqw19-675GyrTfqmalHunt Regional Medical Center At GreenvilleComment on above:Performed By: #### CBCA, 3040-3, 8, LIVR #### [facility] ([id number]) [address] [place] [address] 21999 #### SANDRA, 16182-0 #### [facility] ([id number]) [address], [address] [place] [address]QXT [Catalytic activity/Vol]10 U/LNormal0-31POhio State University Wexner Medical CenterComment on above:Performed By: #### JOSE, 0-3, 1797-11, LIVR #### [facility] ([id number]) [address] [place] [address] 61652 #### SANDRA, 56196-4 #### [facility] ([id number]) [address] [facility], [address] [place], [place] [address]BVM [Catalytic activity/Vol]18 U/LNormal0-41ProHunt Regional Medical Center At GreenvilleComment on above:Performed By: #### JOSE, 0-3, 1797-11, LIVR #### [facility] ([id number]) [address] [place] [address] 51406 #### SANDRA, 94593-0 #### [facility] ([id number]) [address] [facility], [address] [place], [place] [address]Jddxfarcn [Mass/Vol]0.3 mg/dLNormal0.3-1.2POhio State University Wexner Medical CenterComment on above:Performed By: #### JOSE, 0-3, 1797-11, LIVR #### [facility] ([id number]) [address] [place] [address] 36604 #### SANDRA, 01394-1 #### [facility] ([id number]) [address] [facility], [address] [place], [place] [address]Dcrkdpppe.direct [Mass/Vol]0.1 mg/dLNormal0.0-0.4ProHunt Regional Medical Center At GreenvilleComment on above:Performed By: #### JOSE, 0-3, 1797-11, LIVR #### [facility] ([id number]) [address] [place] [address]356 #### LESIAP, 67542-7 #### [facility] ([id number]) [address] [facility], [address] [place], [place] [address]Barxdkg [Mass/Vol]7.4 g/dLNormal6.0-8.0ProChillicothe Hospital HospitalComment on above:Performed By: #### CBCA, 3040-3, 1798-8, LIVR #### [facility] ([id number]) [address] [place] [address], [facility] [place] [address] #### AHP, 55600-4 #### [facility] ([id number]) [address], [address] [place], [place] [address]MUQ MACROSCOPIC NURon 93-08-7222ZLEVKPDEZ NURNegativeNormalNEG [facility] HospitalComment on above:Performed By: #### NUM #### [facility] ([id number]) [address] [place] [address], [place], [place] [address]BAFHG/HGB NURNegativeNormalNEGHolzer Medical Center – JacksonComment on above:Performed By: #### NUM #### [facility] ([id number]) [address] [place] [address] 25[address]EWAQBXU NURNegativeNormalNEGHolzer Medical Center – JacksonComment on above:Performed By: #### NUM #### [facility] ([id number]) [address] [place] [address]2552HENNFYU NURNegativeNormalNEGProChillicothe Hospital HospitalComment on above:Performed By: #### NUM #### [facility] ([id number]) [address] [place] [address]BLLEPHDDJ ESTERASE NURTraceAbnormalNEGMercy Health St. Vincent Medical Center HospitalComment on above:Performed By: #### NUM #### [facility] ([id number]) [address] [place] [address] 98753XVEJWIV NURNegativeNormalNEGProChillicothe Hospital HospitalComment on above:Performed By: #### NUM #### [facility] ([id number]) [address] [place] [address]BZ NUR5.3Ytvhjg4.0-8.5POhio State University Wexner Medical CenterComment on above:Performed By: #### NUM #### [facility] ([id number]) [address] [place] [address] 24769WOTQXYH NURNegativeNormalNEGProHunt Regional Medical Center At GreenvilleComment on above:Performed By: #### NUM #### [facility] ([id number]) [address] [place] [address]SAQNDGUN GRAVITY PREET>=1.079Gdvain5.003-1.035ProHunt Regional Medical Center At GreenvilleComment on above:Performed By: #### NUM #### [facility] ([id number]) [address] [place] [address]UUUPLSASMVCZ NUR0.2 eu/dLNormal<1.1POhio State University Wexner Medical Center Comment on above:Performed By: #### NUM #### [facility] ([id number]) [address] [place] [address] 59[address]DY hip RT min 2V(w/wo pelvis)*on 82-95-1316LV hip RT min 2V(w/wo pelvis)*[facility] [place] [address] XRay Report Signed Patient: Ne Roy MR#: [id number] : 1965 Acct:[id number] Age/Sex: 57 / F ADM Date: 10/18/22 Loc: Room: [address] [place] [address] Type: ADM IN Attending Dr: Tereza Bhat [...] Selwyn Wilkinson M.D.10/20/2022 10:47 AM Dictation Location: [place] [address] Transcribed By: SAMANTHA 10/20/22 104 Dictated By: Selwyn Wilkinson II, MD 10/20/226 Signed By: 10/20/22 1047[facility] HospitalECG 12 lead ECGon 10-18-2022 ECG 12 lead [facility]UC[facility] Main [place] [address] [place] [address] Electrocardiograph Report Signed Patient: Ne Roy MR#: [id number] : 1965 Acct:[id number] Age/Sex: 57 / F ADM Date: 10/18/22 Loc: Room: [address] [place] [address] Type: ADM IN Attending Dr: Tereza Bhat [...] No previous ECGs available Confirmed by JEANA DIANE DO ([id number]) on 10/18/2022 12:52:52 PM Referred By: Electronically Signed By:JEANA DIANE DO Transcribed By: MUS Signed By Jeana Diane DO 10/18 1252NormalAshtabula General HospitalLipid Panelon 10-18-2022 Cholesterol [Mass/Vol]126 mg/ySTnr516-880WwdjxfqeyAshtabula General Hospital Comment on above:Result Comment: Chol less than 200 mg/dl low risk Chol 201-239 mg/dl borderline risk Chol 240 mg/dl and greater high riskPerformed By: #### LIPID, TSH3 wRFLX, [id number] #### [facility] [address] [place] [address] USACholesterol in HDL [Mass/Vol]44 mg/lFAillqk63-17UabnxjereAshtabula General HospitalComment on above:Result Comment: HDL CHOL ATP-III CLASSIFICATION Cardiovascular Risk HDL > or equal to 60 mg/dL LOW HDL < 40 mg/dL HIGHPerformed By: #### LIPID, TSH3 wRFLX, [id number] #### [facility] [address] [place] [address] USACholesterol.total/Cholesterol in HDL [Mass ratio]2.9 {ratio}Normal<5.0Ashtabula General HospitalComment on above:Performed By: #### LIPID, TSH3 wRFLX, [id number] #### [facility] [address] [place] [address] USALDL Cholesterol,Ytbevmfesq74 mg/dLNormal0-100[facility] HospitalComment on above:Result Comment: LDL ATP III CLASSIFICATION LDL less than 100 mg/dL Optimal LDL 100-129 mg/dL Near or above optimal LDL 130-159 mg/dL Borderline high LDL 160-189 mg/dL High LDL greater than 189 mg/dL Very highPerformed By: #### LIPID, TSH3 wRFLX, [id number] #### [facility] [address] [place] [address] USATriglyceride w/Ffllds64 mg/dLNormal0-149As[facility] HospitalComment on above:Result Comment: TRIG ATP III CLASSIFICATION TRIG less than 150 mg/dL Normal TRIG 150-199 mg/dL Borderline high TRIG 200-500 mg/dL High TRIG greater than 500 mg/dL Very high Standard traceable to the Center for Disease Conrtrol and Prevention (CDC) test method.Performed By: #### LIPID, TSH3 wRFLX, [id number] #### [facility] [address] [place] [address] USAVLDL CHOLESTEROL8 mg/dLNormalAshtabula General HospitalComment on above:Performed By: #### LIPID, TSH3 wRFLX, [id number] #### [facility] [address] [place] [id number] USAThyroid Stim Hormone w/Rflxon 87-43-4169Yhglagk Stim Hormone w/Rflx0.68 u[iU]/mLNormal0.45-5.33[facility] Comment on above:Performed By: #### LIPID, TSH3 wRFLX, [id number] #### [place] [id number] USAVitamin D 25 Hydroxy Totalon 55-78-2168Rphmfrg D 25 Hydroxy Total27.6 ng/lYHqt36-197TvbmyhdrdAshtabula General HospitalComment on above:Result Comment: VITAMIN D STATUS 25(OH)VITAMIN D RANGE (ng/mL) Deficient <20 Insufficient 20 to <30 Sufficient 30 to 100 Reference: Gege MF,Campos NC, Mary Ellen CANADA, et al. Evaluation,treatment, and prevention of vitamin D deficiency; an Endocrine Society clinical practice guideline. JCEM. 2010; 96(7):1911-30. PERFORMED BY: [place] [address] PATHOLOGIST CLINICAL DATA ASSISTANT LETICIA ABARCA M.D.Performed By: #### LIPID, TSH3 wRFLX, [id number] #### [place] [id number] USABNPon 89-46-0155Oertmyrixdx peptide B (Bld) [Mass/Vol]11.0 pg/mLNormal<=900.0The [facility] Akron GeneralComment on above:Performed By: #### BMP, BNP #### [facility] [address] [place] [address] [address] Asa JaraCASE[facility] AUTO DIFFon 11-71-4814DSEO #0.1 103/ulNormal0.0-0.1The [facility] GeneralComment on above:Performed By: #### CBC #### [facility] [address] [place] [address] Dr. Asa JaraBasophils/100 WBC (Bld)0.5 %Normal0.2-2.0[facility] Comment on above:Performed By: #### CBC #### [facility] [address] [place] [address] Dr. Asa Estrada #0.3 103/ulNormal0.0-0.7The [facility] GeneralComment on above: Performed By: #### CBC #### [facility] [address] [place] [address] Dr. Asa Boudreauxosinophils/100 WBC (Bld)2.7 %Normal0.9-7.0[facility] Comment on above:Performed By: #### CBC #### [facility] [address] [place] [address] Dr. Asa Boudreauxrythrocyte distribution width (RBC) [Ratio]12.2 %Plgujw33.0-15.0 [facility]Comment on above:Performed By: #### CBC #### [facility] [address] [place] [address] Dr. Asa JaraHematocrit (Bld) [Volume fraction]44.2 %Gjtcon98.0-48.0[facility] GeneralComment on above:Performed By: #### CBC #### [facility] [address] [place] [address] Dr. Asa JaraHemoglobin (Bld) [Mass/Vol]15.4 g/kKXayjal93.0-16.0[facility] GeneralComment on above:Performed By: #### CBC #### [facility] [address] [place] [address] Dr. Asa Mills #0.01 10e3/ulNormal0.00-0.03[facility] GeneralComment on above:Performed By: #### CBC #### [facility] [address] [address] [address] Asa Mills %0.1 %Normal0.0-0.5[facility] GeneralComment on above: Performed By: #### CBC #### [facility] [address] [place] [address] Dr. Asa Jeffery #3.0 103/ulNormal1.2-3.8[facility] GeneralComment on above:Performed By: #### CBC #### [facility] [address] [place] [address] Dr. Asa Hyltonhocytes/100 WBC (Bld)30.9 %Gfcwqi20.5-60.0[facility]Comasp[facility] on above:Performed By: #### CBC #### [facility] [address] [place] [address] Dr. Asa NormanUAL DIFF REQNONormalThe [facility] GeneralComment on above: Performed By: #### CBC #### [facility] [address] [place] [address] Dr. Asa Nino (RBC) [Entitic mass]31.2 fxEthahx62.7-34.0[facility] GeneralComment on above:Performed By: #### CBC #### [facility] [address] [place] [address] Dr. Asa Parks (RBC) [Mass/Vol]34.8 g/wDTboebv54.9-35.2[facility] GeneralComment on above:Performed By: #### CBC #### [facility] [address] [place] [address] Dr. Asa Parks (RBC) [Entitic vol]89.5 iEBmsjgj55.0-99.0The [facility] GeneralComment on above:Performed By: #### CBC #### [facility] [address] [place] [address] Dr. Asa Lobo #0.5 103/ulNormal0.3-0.8The [facility] GeneralComment on above:Performed By: #### CBC #### [facility] [address] [address] [address] Asa Sainzocytes/100 WBC (Bld)5.4 %Normal1.7-12.0[facility] Comment on above:Performed By: #### CBC #### [facility] [address] [place] [address] Dr. Asa FrankelUT #5.8 103/ulNormal1.4-6.5The [facility] GeneralComment on above:Performed By: #### CBC #### [facility] [address] [place] [address] Dr. Asa Frankelutrophils/100 WBC (Bld)60.4 %Hwawjo92.0-75.0[facility] GeneralComment on above:Performed By: #### CBC #### [facility] [address] [place] [address] Dr. Asa Shepardlet mean volume (Bld) [Entitic vol]9.7 fLNormal9.5-13.5The [facility] GeneralComment on above:Performed By: #### CBC #### [facility] [address] [place] [address] Dr. Asa JaraPLT215 103/ecPyjmle819-193Eia [facility]Comment on above: Performed By: #### CBC #### [facility] [address] [place] [address] Dr. Asa JaraRBC4.94 106/ulNormal4.20-5.40The [facility] GeneralComment on above:Performed By: #### CBC #### [facility] [address] [place] [address] Dr. Asa JaraWBC9.6 103/ulNormal4.0-11.0[facility] GeneralComment on above: Performed By: #### CBC #### [facility] [address] [place] [address] Dr. Asa JaraPROF CHEM 8 (BAS METB)on 94-05-1156Rnniz gap [Moles/Vol]11.3 mmol/LNormalThe [facility] GeneralComment on above:Performed By: #### BMP, BNP #### [facility] [address] [address] [address] Asa JaraCalcium [Mass/Vol]9.4 mg/dLNormal8.5-10.1[facility] Comment on above:Performed By: #### BMP, BNP #### [facility] [address] [address] [address] Asa JaraChloride [Moles/Vol]105 mmol/KOqogfe44-601IdnSt. [facility] Hospital Comment on above:Performed By: #### BMP, BNP #### [facility] [address] [address] [address] Asa JaraCO2 [Moles/Vol]24.6 mmol/ZOyhocn52.0-32.0[facility] Comment on above:Performed By: #### BMP, BNP #### [facility] [address] [place] [address] Dr. Asa JaraCreatinine [Mass/Vol]0.76 mg/dLNormal0.55-1.02St[facility] HospitalComment on above:Performed By: #### BMP, BNP #### [facility] [address] [place] [address] Dr. Asa BoudreauxGFR-AF PALAUAN>60Normal>=60The [facility] GeneralComment on above:Performed By: #### BMP, BNP #### [facility] [address] [place] [address] Dr. Asa BoudreauxGFR-NON AF PALAUAN>60Normal>=60The [facility] GeneralComment on above:Performed By: #### BMP, BNP #### [facility] [address] [place] [address] Dr. Asa JaraGlucose [Mass/Vol]98 mg/xLGjjnrm35-163WdxSt. [facility] Hospital Comment on above:Performed By: #### BMP, BNP #### [facility] [address] [place] [address] Dr. Asa JaraPotassium [Moles/Vol]4.4 mmol/LNormal3.5-5.1[facility] Comment on above:Performed By: #### BMP, BNP #### [facility] [address], [place] [address] Dr. Asa JaraSodium [Moles/Vol]137 mmol/QVefumo755-085Znf [facility] Comment on above:Performed By: #### BMP, BNP #### [facility] [address] [place], [place] [address] Dr. Asa JaraUrea nitrogen [Mass/Vol]15.0 mg/dLNormal7.0-18.0The [facility] GeneralComment on above:Performed By: #### BMP, BNP #### [facility] [address] [place], [place] [address] Dr. Asa JaraUrea nitrogen/Creatinine [Mass ratio]19.7 mg/mgNoMemorial Health System Marietta Memorial HospitalComment on above:Performed By: #### BMP, BNP #### [facility] [address] [address] [address] Asa Maynard LUCITA DOP LEG RTon 40-92-3533ZP LUCITA DOP LEG RTEXAMINATION: US LUCITA DOP LEG RT HISTORY: Deep [...] Electronically authenticated by: NÉSTOR CHACON Date: 2022-03-01 15:31[facility] Vital Signs Date TimeVital SignValuePerforming IdnnrefrgQghxfbqs09-84-1412 09:340400Body .02 cmAs[facility]05-[facility]-2025 09:34-0400Body mass index (BMI) [Ratio]37 kg/t6VqkkrtpkfAshtabula General Hospital05-01-2025 09:34-0400Body jtssayqwtqi95.3 [degF][facility]05-01-2025 09:34-0400Body xfrfwe24.8 kgAshtabula General Hospital05-01-2025 09:340400Diastolic blood ciorjcyn47 mm[Hg][facility] 08-12-2024 09:34-0400Heart qepn013 /[facility] 08-12-2024 09:34-0400Respiratory rate18 /[facility] 08-12-2024 09:34-0051KqO7% (BldA) [Mass fraction]100 %[facility]05-01-2025 09:34-0400Systolic blood utbiqpms287 mm[Hg][facility] Encounters Encounter DateEncounter TypeCare ProviderFacilityStart: 97-07-4437oqnpgfkxgn Radha FlynnFacility:AngeOktibbeha DHStart: 49-35-1740uqiyuxaeepCfdizi GudimellaFacility: manStart: 12-06-2024 End: 58-37-9265tifprupjghAYFTB SHAMMOFacility:Rubi DHStart: 11-24-2024 End: 39-40-8584hqknsmxmxkQqwmwjv A. MouchliFacility:FTMCStart: 11-18-2024 End: 53-93-5022bnmozodkcoCebdjc GudimellaFacility: manStart: 10-20-2024 End: 15-90-4834ktapbreiamOpccry GudimellaFacility:FTMCStart: 10-20-2024 End: 67-80-0294sdtpztfeluQCLMY SHAMMOFacility: Start: 10-13-2024 ambulatoryLUCAS SHAMMOFacility: Start: 10-11-2024 End: 20-52-4884yvvwtfelwyAvimwjh A. MouchliFacility:CruzJovon DHStart: 08-12-2024 End: 04-71-9387nnjqltnjyvXwkfrhbctACMC Healthcare [facility] Work Phone: Start: 08-12-2024 End: 60-74-6678Awfrtxc encounter procedureO[facility] [place] Work Phone: Start: 37-42-8089Kmp-patient / Non-visitO[facility] Work Phone: Start: 06-02-2024 End: 62-99-3606pdggrspbttKzqtqcm MeghaCassidy ValdivialiFacility:Rubi DHStart: 95-70-9790wkwemlhsgrMNSEDR WEILANDFacility:Rubi DHStart: 03-23-2024 End: 06-51-2097evlvcgctmrLNHEX C WOLFFProMedica San Joaquin Valley Rehabilitation Hospitaltart: 09-18-2023 End: 17-34-2295Okczbpwot department patient visitNO PCP NO PCPProMedica Oberlin HospitalStart: 09-12-2023 End: 36-81-5503Klanbovzi department patient visitNO PCP NO PCPProMedica San Joaquin Valley Rehabilitation Hospitaltart: 47-53-6179nnejtjerjfWigfsgjhcow PerlitaFacility:[facility] Systemtart: 10-18-2022 End: 45-32-6897Apbvaysoji and management of inpatientYvonshaniagnes MoorePerlita Facility:[facility] Systemtart: 03-01-2022 End: 61-50-5067jpxdkvwmhlZJ MARC A NADERERFacility:Z7Cogui: 07-23-2021 End: 56-87-1777fzqxzaacruRF MARC A NADERERFacility:L1Pbhjm: 01-28-2017 End: 65-73-7535SynouoihhlXYRMEUV PHYSICIANFacility:[facility] Payers DatePayer CategoryPayerPolicy [id number]-[id number] .[id number] .1.891591.3.57[id number] .1.948003.3.57[id number] .1.085347.3.57[id number] .1.929718.3.57[id number] 2.840.1.705399.3.57[id number] 2..840.1.103752.3.57[id number] 2.0.1.763475.3.57[id number] 2.0.1.313431.3.57[id number] 2.0.1.358823.3.57[id number] 2.0.1.990359.3.57[id number] 2.0.1.867515.3.57[id number] 2.0.1.822980.3.57[id number] 2..1.053573.3.57[id number] 2.0.1.6[id number] 2.0.1.461841.3.579.2.531 Social History DateTypeDetailFacilityStart: 12-33-4934Zztqvvw smoking status NHISNever smoked tobacco (finding)[facility]: 11-33-4923SokGmrrjh (finding)[facility] Systemt[facility]: 55-20-9872Qbh Assigned At [facility] Evaluation note Note Date & TypeNoteFacilityEvaluation note* Diagnosis Onset Date Resolution Status Admit Date Respiratory infection acuteMay 2024 9:26am [facility] Work Phone: Summary Purpose Family History No Family History Records Found Relationship Condition Age at Onset Recorded Date/T amarilis father Malignant neoplasm Unknown motherMalignant neoplasmUnknown Advance Directives No Advanced Directives Records Found Advance Directive Response Recorded Date/ Time Advance Directives No October 17 4:58pm Chief Complaint and Reason for Visit Chief Complaint Admit Date Weight Management July 13, 2024 11:5 9pm cough, congestion, headache August 12 9:26am Reason for Visit Admit Date Respiratory infection August 12, 2024 9:26 am Additional Source Comments INFORMATION SOURCE (unrecogn ized section and content) DATE CREATED AUTHOR 10/07/2017 [facility] DATE CREATED AUTHOR AUTHOR'S ORGANIZ ATION 03/06/2022 [facility] DATE CREATED AUTHOR AUTHOR'S ORGANIZ ATION 04/13/2023 [facility] DATE CREATED AUTHOR AUTHOR'S ORGANIZ ATION 03/26/2024 [facility] DATE CREATED AUTHOR AUTHOR'S ORGANIZ ATION 12/07/2024 [facility] Care Teams (unrecognized sec tion and content) Team Status: Active Member Role Status Dates Art Richardson BLOCK CABLEMAN-C Primary Care Provider Active Team Status: Active Member Role Status Dates Art Richardson BLOCK CABLEMAN-C Primary Care Provider Active Start: July 13, 2024 Trace Varner ProviderActiveStart: July 13, 2024 Team Status: Inactive Member Role Status Dates Art Richardson NP-C Primary Care Provider Active Start: August 12, 2024 End: August 12Rick Cabrera ProviderActiveStart: August 12, 2024 End: August 12, 2024 Goals (unrecognized section and content) Goals may be documented in a n alternate section FOR RECORDS PERTAINING TO PATIENTS WHO ARE [...] BE BASED ON THE PRIMARY CLINICAL RECORDS. [facility]. provides no warranty or guarantee of the accuracy or completeness of information in this document.
== END 2025-02-04 09:40 | disposition home or self-care (01) ==
LOC: MAMMO 09:39
PROVIDERS: PCP Family Medicine; Visit Provider Family Medicine
DX: Z12.31 Encounter for screening mammogram for malignant neoplasm of breast (principal)
CPT/HCPCS: 77063; 77067